=== PATIENT | male | born 1975 | race Hispanic/Latino ===

== ENCOUNTER 2018-04-16 00:23 | Inpatient (IN) | payer MEDICAID, OTHER ==
[2018-04-16] MEDS ORDERED: Morphine 4 mg/ml ISec ONE (00:30)
[2018-04-16 00:31] VITALS: TEMP 98.9
[2018-04-16] MEDS ORDERED: Morphine 4 mg/ml ISec IVP STA (00:33)
[2018-04-16] MEDS ORDERED: Eptifibatide 0.75 mg/ml 75 MG/100 ML BOTTLE IV ONE (00:34)
[2018-04-16] MEDS ORDERED: Eptifibatide 20 mg/10mL Inj IVP ONE ×3 (00:34→01:20)
[2018-04-16] MEDS ORDERED: Eptifibatide 20 mg/10mL Inj IVP STA (00:36)
[2018-04-16] MEDS: Eptifibatide 0.75 mg/ml 75 MG/100 ML BOTTLE IV SCH ×2 (00:43→12:48)
[2018-04-16 00:51] LABS: BASO # 0.04 K/mm3 (0.0-2.0); EOS # 0.1 (0.0-0.7); EOS % 2.4 % (1.5-5.0); GRAN # 1.12 (1.4-6.5); GRAN % 27.4 % (50.0-68.0); HEMOGLOBIN 16.6 g/dL (14.0-18.0); LYMPH # 2.4 (1.2-3.4); MEAN CELL VOLUME 77.8 fl (80.0-105.0); MEAN CORPUSCULAR HEMOGLOBIN 25.9 pg (25.0-35.0); MEAN CORPUSCULAR HGB CONC 33.3 g/dl (31.0-37.0); MONO # 0.4 (0.1-0.6); MONO % 10.2 % (1.0-6.0); RBC 6.41 10^6/uL (3.5-6.1); RED CELL DISTRIBUTION WIDTH 13.9 % (11.5-14.5); WHITE BLOOD COUNT 4.1 10^3/uL (4.5-11.0)
--- NOTE | 2018-04-16 00:53 | ED PDOC ---
Arrival/HPI - General Chief Complaint: Chest Pain Time Seen by Provider: 04/16/18 00:31 Historian: Patient - History of Present Illness Narrative History of Present Illness (Text): 04/16/18 00:53 42 year old male, whose past medical history includes IDDM, presents to the emergency department sent from the [facility], for possible myocardial infarction. EMS states EKG showed inferior infarction. EMS also states patient was given 325mg aspirin. Patient states his pain level reduced from 7 to 3 after administration of aspirin. Patient states symptoms started 3 hours prior to his arrival at this emergency department. Patient denies fevers, chills, abdominal pain, nausea, vomiting, diarrhea, back pain, neck pain, or any other complaint. Time/Duration: Prior to Arrival Symptom Onset: Gradual Symptom Course: Improving Context: Home Past Medical History - Provider Review Nursing Documentation Reviewed: Yes - Infectious Disease Hx of Infectious Diseases: None - Cardiac Hx Cardiac Disorders: No - Pulmonary Hx Respiratory Disorders: No - Neurological Hx Neurological Disorder: No - HEENT Hx HEENT Disorder: No - Renal Hx Renal Disorder: No - Endocrine/Metabolic Hx Endocrine Disorders: Yes Hx Diabetes Mellitus Type 1: Yes (stopped taking insulin) - Hematological/Oncological Hx Blood Disorders: No - Integumentary Hx Dermatological Disorder: No - Musculoskeletal/Rheumatological Hx Musculoskeletal Disorders: No - Gastrointestinal Hx Gastrointestinal Disorders: No - Genitourinary/Gynecological Hx Genitourinary Disorders: No - Psychiatric Hx Psychophysiologic Disorder: No Hx Substance Use: No Family/Social History - Physician Review Nursing Documentation Reviewed: Yes Family/Social History: No Known Family HX Smoking Status: Heavy Smoker > 10 Cigarettes Daily Hx Alcohol Use: Yes Frequency of alcohol use: Socially Hx Substance Use: No Allergies/Home Meds Allergies/Adverse Reactions: Allergies insulin human recombinant, protamin Allergy (Verified 04/16/18 00:26) URTICARIA Home Medications: Home Meds Medication Instructions Recorded Confirmed RX: No Known Home Med 04/16/18 04/16/18 Review of Systems - Physician Review All systems were reviewed & negative as marked: Yes - Review of Systems Constitutional: absent: Fevers, Night Sweats Cardiovascular: Chest Pain Gastrointestinal: absent: Abdominal Pain, Diarrhea, Nausea, Vomiting Musculoskeletal: absent: Back Pain, Neck Pain Physical Exam Vital Signs Reviewed: Yes Vital Signs Temp Pulse Resp BP Pulse Ox 04/16/18 00:38 102 H 18 134/95 H 98 04/16/18 00:31 98.9 F 04/16/18 00:28 101 H 20 131/89 97 Blood Pressure: Normal Pulse: Tachycardic Respiratory Rate: Normal Appearance: Positive for: Well-Appearing, Non-Toxic, Comfortable Pain Distress: None Mental Status: Positive for: Alert and Oriented X 3 - Systems Exam Head: Present: Atraumatic, Normocephalic Pupils: Present: PERRL Extroacular Muscles: Present: EOMI Conjunctiva: Present: Normal Mouth: Present: Moist Mucous Membranes Neck: Present: Normal Range of Motion Respiratory/Chest: Present: Clear to Auscultation, Good Air Exchange. No: Respiratory Distress, Accessory Muscle Use Cardiovascular: Present: Normal S1, S2, Tachycardic. No: Murmurs Abdomen: No: Tenderness, Distention, Peritoneal Signs Back: Present: Normal Inspection. No: CVA Tenderness Upper Extremity: Present: Normal Inspection. No: Cyanosis, Edema Lower Extremity: Present: Normal Inspection. No: Edema Neurological: Present: GCS=15, CN II-XII Intact, Speech Normal Skin: Present: Warm, Dry, Normal Color. No: Rashes Psychiatric: Present: Alert, Oriented x 3, Normal Insight, Normal Concentration Medical Decision Making ED Course and Treatment: 04/16/18 01:02 Impression: 42 year old male presents with chest pain. Inferior wall STEMI on previous EKG from [facility]. Code heart activated. Appreciate consult w/ Dr. Gonzales- requesting Brilinta 180mg, Heparin 3000U,. Integrillin 180mcg/kg + drip. Meds ordered. Pt in NAD. Nno hypoxic. Morphine IV given w/ decreased pain. Plan: -- EKG -- Chest X-ray -- Cardiac Iso, CMP -- Eptifibatide -- Heparin -- Morphine -- Brilinta -- O2 nasal cannula -- Reassess and disposition Prior Visits: No previous visits to this ER Progress Notes: 04/16/18 01:04 EKG reviewed by me, shows: Sinus Tachycardia @100 bpm STEMI 2,3, avF, Inferior wall infarct To cytology laboratory manager w/ Dr. Gonzales. Pt in NAD. 04/16/18 05:41 - RAD Interpretation Radiology Orders: 04/16/18 00:31 CHEST PORTABLE [RAD] Stat - Medication Orders Current Medication Orders: Eptifibatide (Integrilin Bolus) 18 mg IVP ONCE ONE Stop: 04/16/18 00:46 Last Admin: 04/16/18 00:38 Dose: 18 mg IVP Administration Document 04/16/18 00:38 JOL (Rec: 04/16/18 00:42 [facility]-) Charges for Administration # of IVP Administrations 1 Eptifibatide (Integrilin) 75 mg in 100 mls @ 16.01 mls/hr IV .Q6H15M PAM; Protocol Last Admin: 04/16/18 00:43 Dose: 16.01 mls/hr eMAR Start Stop Document 04/16/18 00:43 JOL (Rec: 04/16/18 00:43 [facility] Intravenous Solution Start Date 04/16/18 Start Time 00:43 Discontinued Medications Heparin Sodium (Porcine) (Heparin) 3,000 units IV ONCE STA; Protocol Stop: 04/16/18 00:32 Last Admin: 04/16/18 00:34 Dose: 3,000 units eMAR Start Stop Document 04/16/18 00:34 JOL (Rec: 04/16/18 00:39 [facility]-) Intravenous Solution Start Date 04/16/18 Start Time 00:34 Morphine Sulfate (Morphine) 4 mg IVP STAT STA Stop: 04/16/18 00:34 Last Admin: 04/16/18 00:31 Dose: 4 mg MAR Pain Assessment Document 04/16/18 00:31 JOL (Rec: 04/16/18 00:39 [facility]-) Pain Reassessment Is this a pain reassessment? No Sleep Is patient sleeping during reassessment? No Presence of Pain Presence of Pain Yes Pain Scale Used Protocol: PSCALES Pain Scale Used Numeric Location Pain Location Body Site Chest Description Intensity of Pain at present 3 IVP Administration Document 04/16/18 00:31 JOL (Rec: 04/16/18 00:39 [facility]-) Charges for Administration # of IVP Administrations 1 Ticagrelor (Brilinta) 180 mg PO STAT STA Stop: 04/16/18 00:34 Last Admin: 04/16/18 00:30 Dose: 180 mg - Scribe Statement The provider has reviewed the documentation as recorded by the Ghassan Ayala Provider Scribe Attestation: All medical record entries made by the Scribe were at my direction and personally dictated by me. I have reviewed the chart and agree that the record accurately reflects my personal performance of the history, physical exam, medical decision making, and the department course for this patient. I have also personally directed, reviewed, and agree with the discharge instructions and disposition. Disposition/Present on Arrival - Present on Arrival Any Indicators Present on Arrival: No History of DVT/PE: No History of Uncontrolled Diabetes: No Urinary Catheter: No History of Decub. Ulcer: No History Surgical Site Infection Following: None - Disposition Have Diagnosis and Disposition been Completed?: Yes Diagnosis: STEMI (ST elevation myocardial infarction) Disposition: HOSPITALIZED Disposition Time: 00:28 Patient Problems: Current Active Problems Problem Status Onset STEMI (ST elevation myocardial infarction) Acute Condition: GUARDED
[2018-04-16] MEDS ORDERED: Lidocaine 2% Inj (20ml) ONE (00:56)
[2018-04-16] MEDS ORDERED: Phenylephrine 10 mg/ml Inj ONE (00:56)
[2018-04-16] MEDS ORDERED: Iodixanol 320 MG/ML 200 ML BOTTLE IV ONE (00:57)
[2018-04-16] MEDS ORDERED: Nitroglycerin 50mg in D5W 50 MG/250 ML BOTTLE IV ONE (00:57)
[2018-04-16] MEDS ORDERED: Iohexol 350mgl/ml 50 ML ONE (00:57)
[2018-04-16] MEDS ORDERED: Heparin 2,000 ML IV ONE (00:57)
[2018-04-16] MEDS ORDERED: Midazolam 2 MG/2 ML VIAL ONE ×2 (00:57→01:17)
[2018-04-16] MEDS ORDERED: Iodixanol 320 MG/ML 100 ML BOTTLE IV ONE (00:57)
[2018-04-16] MEDS ORDERED: Sodium Chloride 0.9% 1,000 ML IV SCH ×2 (01:00→02:15)
[2018-04-16 01:09] LABS: ALB/GLOB RATIO 1.2 (1.1-1.8); ALBUMIN 4.3 g/dL (3.0-4.8); ALT/SGPT 29 U/L (7-56); AST/SGOT 30 U/L (17-59); BLOOD UREA NITROGEN 15 mg/dL (7-21); CALCIUM 9.3 mg/dL (8.4-10.5); GFR NON-AFRICAN AMERICAN > 60; TROPONIN I 0.15 ng/mL
[2018-04-16] MEDS ORDERED: Verapamil 2 ML ONE (01:13)
--- NOTE | 2018-04-16 02:41 | CARD ---
APPROVED REPORT Date of service: 04/16/2018 Procedure(s) performed: Left Heart Catheterization PTCA with Stenting of Mid Cx/ OM! with SHAWN PTCA with Balloon Angioplasty of OM2 PTCA with Stenting of Mid RCA with SHAWN HISTORY The patient is a 42 year-old male with a history of : tobacco history() : The patient is a current smoker , Admitted with STEMI ( Inferior wall Mi) referred from [facility] with Hx of active tobacco abuse and DM but not taking Meds exceot Ibuprofen. INDICATION The indication(s) include : STEMI (>0 to less than or equal to 6 hours). CASE TECHNIQUE The patient was brought emergently to the Cardiac Catheterization Laboratory in a fasting state and was prepped and draped in a sterile manner. The left wrist was infiltrated with 2% Lidocaine subcutaneous anesthesia. A sheath was inserted into the left radial artery without difficulty. Coronary angiography was performed using coronary diagnostic catheters. The left coronary system was accessed and visualized with a Diagnostic , JL5 Fr catheter. The right coronary system was accessed and visualized with a Diagnostic , Jr 5Fr catheter. The left ventricle was accessed and visualized with a Pig tail catheter. Left ventriculogram was performed in MADRIGAL projection. Closure device was deployed with a Fr Tr Band without any complications. The patient tolerated the procedure well and there were no complications associated with the procedure. Vessel Analysis The patient's coronary anatomy is co-dominant. The left main coronary artery is a large size vessel with intimal irregularities. The left main trifurcates to the left anterior descending, circumflex, and ramus. The left anterior descending artery is a large size vessel with intimal irregularities. The first diagonal branch is a medium size vessel with intimal irregularities and without significant stenosis. The circumflex artery is a large size vessel with diffuse calcification noted throughout this vessel and with significant stenosis. There is a 99% stenosis in the mid segment. Bifurcating into OM1 and OM2 The first obtuse marginal branch is a large size vessel with diffuse calcification noted throughout this vessel and with significant stenosis. There is a 99% stenosis in the ostial segment. The second obtuse marginal branch is a medium size vessel with diffuse calcification noted throughout this vessel and with significant stenosis. There is a 99% stenosis in the ostial segment. The right coronary artery is a medium size vessel with diffuse calcification noted throughout this vessel and with significant stenosis. There is a 90% stenosis in the mid segment. Left Ventricle The left ventricle is borderline enlarged in size with Borderline contractility. Ischemic cardiomyopathy. The left ventricular ejection fraction is estimated to be 45-50%. The left ventricular end diastolic pressure is 14 mmHg. There was no gradient across the aortic valve upon pullback. PCI Technique Lesion Anticoagulation was achieved with Heparin and integrellin Bolluses and continuous infusion. Percutaneous coronary intervention was performed on the mid circumflex artery segment and OM1. The lesion stenosis prior to intervention was 99% with BULL 1 flow. A Xb 3.5 Guide Catheter was used to engage the ostium. A Lud[employer]el[employer] wire Interventional Guidewire was used to cross the lesion. BALLOON DILATION A Balloon catheter Sprinter 2/12 was inserted and inflated up to 10atm for 20seconds. Upsized balloon tosprinter 2.5/10 and inflated to 12 atmosphere STENT DEPLOYMENT A drug-eluting stent Resolute 2.75/15 was inserted and inflated up to 13atm for 20seconds. Final angiography reveals 0 % stenosis with BULL 3 flow. PCI Technique Lesion 2 Percutaneous Coronary Intervention was performed on the second obtuse marginal branch segment. The lesion stenosis prior to intervention was 99% with BULL 1 flow. A Xb3.5 Guide Catheter was used to engage the ostium. A choice Pt 180 cm Interventional Guidewire was used to cross the lesion. BALLOON DILATION A Balloon catheter 2.0/12 Sprinter was inserted and inflated up to 10atm for 20seconds. Upsized to sprinter 2.,5/10 and inflated to 12 atmosphere Final angiography reveals 0 % stenosis with BULL 3 flow. PCI Technique Lesion 3 Percutaneous Coronary Intervention was performed on the mid right coronary artery. The lesion stenosis prior to intervention was 90% with BULL 2 flow. A JR3.5 Guide Catheter was used to engage the ostium. A Choice pt 180 cm Interventional Guidewire was used to cross the lesion. BALLOON DILATION A Balloon catheter Sprinter 2.5/10 was inserted and inflated up to 10atm for 20seconds. STENT DEPLOYMENT A drug-eluting stent 2.75/12 was inserted and inflated up to 13atm for 20seconds. Final angiography reveals 0 % stenosis with BULL 3 flow. Conclusion Two vessel critical Diz distal Cx 99% involving Bifurcation of Ostial OM1 and OM2 99%, and Mid RCA 90%, Mildly decreased LV Fx. EF-45-50%, EDP-14 mmof Hg. Successful PTCA wityh SHAWN of Mid Cx/ OM1 POBA of OM2 and PTCA with Shawn of Mid RCA Recommendations Aggressive Medical TherapyCardiac Risk Reduction Program Weight Loss Reduction Program Mandatory continue ASA 81 mg daily and Brilinta 90 mg po BID. Pus Beta bianca, ELIZABETH, and statin. aggressive control of DM Compliance of Meds, and complete cessation of smoking. CC; dr. Espinoza.
--- NOTE | 2018-04-16 03:07 | CP.PCM.HP ---
History of Present Illness - History of Present Illness History of Present Illness: Live Gregory, PGY-1 Medicine H&P for Dr. Kuhn G: CC: Referral from [facility] ER for possible CA Pt is a 42 yo M with pmhx of IDDM presents to the ED from a [facility] ER for possible CA. Pt states that he went to satellite ER because he began having chest pain at 9pm. He rated the pain at 7/10 and states that it is a burning type pain which started on his L side and then radiated to the R shoulder and arm. He denies any worsening of the pain with exertion and states that there was no alleviation of the pain overtime. Pt reports not taking anything for the chest pain and states that since it didnt get better over time he wanted to go take a shower, but while walking to the bathroom he became SOB. He then called a cab to take him to the satellite ER and then was BIBA to our ER where a code heart was called. After cath pt was re-evaluated and pt at this time described no chest pain, headaches, lightheadedness, dizziness, numbness, tingling, weakness, SOB, cough, fevers, chills, abd pain, n/v, c/d, or dysuria. Pmhx: IDDM Pshx: I&D (perineal area) Meds: Denies All: Insulin - Urticaria Social: 1ppd x 20yrs, admits to social drinking, denies any illicit drug use Fam: Mom: DM, HTN, Dad: DM, HTN PMD: Dr. Still Pharm: [facility] Present on Admission - Present on Admission Any Indicators Present on Admission: No Review of Systems - Review of Systems Review of Systems: 12 point ROS assessed and negative except for stated in HPI above. Past Patient History - Infectious Disease Hx of Infectious Diseases: None - Past Social History Smoking Status: Heavy Smoker > 10 Cigarettes Daily - CARDIAC Hx Cardiac Disorders: No - PULMONARY Hx Respiratory Disorders: No - NEUROLOGICAL Hx Neurological Disorder: No - HEENT Hx HEENT Problems: No - RENAL Hx Chronic Kidney Disease: No - ENDOCRINE/METABOLIC Hx Endocrine Disorders: Yes Hx Diabetes Mellitus Type 1: Yes (stopped taking insulin) - HEMATOLOGICAL/ONCOLOGICAL Hx Blood Disorders: No - INTEGUMENTARY Hx Dermatological Problems: No - MUSCULOSKELETAL/RHEUMATOLOGICAL Hx Musculoskeletal Disorders: No - GASTROINTESTINAL Hx Gastrointestinal Disorders: No - GENITOURINARY/GYNECOLOGICAL Hx Genitourinary Disorders: No - PSYCHIATRIC Hx Psychophysiologic Disorder: No Hx Substance Use: No - SURGICAL HISTORY Hx Surgeries: No Meds Allergies/Adverse Reactions: Allergies Allergy/AdvReac Type Severity Reaction Status Date / Time insulin human recombinant, Allergy URTICARIA Verified 04/16/18 00:26 protamin Physical Exam - Constitutional Appears: Well, Non-toxic, No Acute Distress - Head Exam Head Exam: ATRAUMATIC, NORMAL INSPECTION, NORMOCEPHALIC - Eye Exam Eye Exam: EOMI, Normal appearance, PERRL - Respiratory Exam Respiratory Exam: Clear to Auscultation Bilateral, NORMAL BREATHING PATTERN. absent: Accessory Muscle Use, Decreased Breath Sounds, Rales, Rhonchi, Wheezes, Respiratory Distress, Stridor Additional comments: pts exam was limited due to pt being post cath and unable to properly assess posterior lung joyce - Cardiovascular Exam Cardiovascular Exam: RRR, +S1, +S2. absent: Gallop, Rubs, Systolic Murmur - GI/Abdominal Exam GI & Abdominal Exam: Normal Bowel Sounds, Soft. absent: Distended, Firm, Gu arding, Tenderness - Extremities Exam Extremities exam: Positive for: normal inspection, pedal pulses present. Negative for: normal capillary refill, pedal edema, tenderness Additional comments: Pts radial area was - Back Exam Back exam: NORMAL INSPECTION. absent: CVA tenderness (L), CVA tenderness (R) - Neurological Exam Neurological exam: Alert, Oriented x3 - Psychiatric Exam Psychiatric exam: Normal Affect, Normal Mood - Skin Skin Exam: Dry, Normal Color, Warm Results - Vital Signs Recent Vital Signs: Last Vital Signs Temp 98.9 F 04/16/18 00:31 Pulse 96 H 04/16/18 01:33 Resp 18 04/16/18 00:57 BP 125/84 04/16/18 01:33 Pulse Ox 98 04/16/18 00:57 - Labs Result Diagrams: 04/16/18 03:15 04/16/18 03:15 Labs: Laboratory Results - last 24 hr 04/16/18 04/16/18 04/16/18 00:30 00:35 00:35 WBC 4.1 L RBC 6.41 H Hgb 16.6 Hct 49.9 MCV 77.8 L MCH 25.9 MCHC 33.3 RDW 13.9 Plt Count 150 MPV 10.0 Gran % 27.4 L Lymph % (Auto) 59.0 H [place] % (Auto) 10.2 H Eos % (Auto) 2.4 Baso % (Auto) 1.0 Gran # 1.12 L Lymph # (Auto) 2.4 [place] # (Auto) 0.4 Eos # (Auto) 0.1 Baso # (Auto) 0.04 Sodium 139 Potassium 4.0 Chloride 104 Carbon Dioxide 25 Anion Gap 14 BUN 15 Creatinine 0.8 Est GFR ( Amer) > 60 Est GFR (Non-Af Amer) > 60 Random Glucose 307 H* Calcium 9.3 Total Bilirubin 0.4 AST 30 ALT 29 Alkaline Phosphatase 88 Lactate Dehydrogenase 356 Total Creatine Kinase 164 Troponin I 0.15 H* Total Protein 7.8 Albumin 4.3 Globulin 3.5 Albumin/Globulin Ratio 1.2 Blood Type A POSITIVE Antibody Screen Negative BBK History Checked No verified bt Assessment & Plan - Assessment and Plan (Free Text) Assessment: Pt is a 42 yo M with pmhx of IDDM presents to the ED from a [facility] ER for possible CA. Code heart was called, pt was taken to the labor commissioner. Plan: 1. Inferior wall CA s/p 3 stents: - Stents placed in Left circumflex, RCA, and OM1 - ASA 81 - Lipitor 80 - Coreg 3.125 BID - Brilinta 90 BID - Ramipril 1.25 qd - Employee Benefits Attorney: Dr Gonzales 2. Hx of DM: - ISS - Low - HgbA1c Case seen and discussed with Dr. Moncada: Live Gregory, PGY-1
[2018-04-16 03:30] LABS: BASO # 0.03 K/mm3 (0.0-2.0); BASO % 0.7 % (0.0-3.0); EOS # 0.1 (0.0-0.7); EOS % 3.3 % (1.5-5.0); GRAN # 1.14 (1.4-6.5); HEMOGLOBIN 16.2 g/dL (14.0-18.0); LYMPH # 2.5 (1.2-3.4); LYMPH % 59.3 % (22.0-35.0); MEAN CELL VOLUME 78.3 fl (80.0-105.0); MEAN CORPUSCULAR HEMOGLOBIN 25.4 pg (25.0-35.0); MEAN CORPUSCULAR HGB CONC 32.5 g/dl (31.0-37.0); MEAN PLATELET VOLUME 10.5 fl (7.0-11.0); MONO # 0.4 (0.1-0.6); MONO % 9.7 % (1.0-6.0); RBC 6.37 10^6/uL (3.5-6.1); RED CELL DISTRIBUTION WIDTH 13.8 % (11.5-14.5); WHITE BLOOD COUNT 4.2 10^3/uL (4.5-11.0)
[2018-04-16 03:47] LABS: BLOOD UREA NITROGEN 15 mg/dL (7-21); CALCIUM 8.2 mg/dL (8.4-10.5); GFR NON-AFRICAN AMERICAN > 60; HDL CHOLESTEROL 26 mg/dL (29-60)
[2018-04-16 03:47] LABS: INR 1.04; PROTHROMBIN TIME 11.9 SECONDS (9.4-12.5)
[2018-04-16 03:54] VITALS: BMI 34.5
[2018-04-16 03:59] LABS: LDL CHOLESTEROL 140 mg/dL (0-129)
--- NOTE | 2018-04-16 06:13 | CP.PCM.PN ---
Subjective - Date & Time of Evaluation Date of Evaluation: 04/16/18 Time of Evaluation: 03:30 - Subjective Subjective: Code Heart note 42 yo male with pmh of IDDM presented to the ED from a [facility] ER for possible STEMI. Patient states that he went to [facility] ER because he began having chest pain at 9pm. He rated the pain at 7/10 and states that it is a burning type pain which started on his left side and then radiated to the right shoulder and arm. Patient denies taking anything for the chest pain. He was take him to the satellite ER and then was BIBA to ED after ekg showed inferior wall MS. Code heart was called. Objective - Vital Signs/Intake and Output Vital Signs (last 24 hours): Temp Pulse Resp BP Pulse Ox 98.9 F 101 H 20 125/84 98 04/16/18 00:31 04/16/18 03:39 04/16/18 03:39 04/16/18 01:33 04/16/18 00:57 - Medications Medications: Current Medications Aspirin (Ecotrin) 81 mg PO DAILY [facility] Atorvastatin Calcium (Lipitor) 80 mg PO DIN [facility] Carvedilol (Coreg) 3.125 mg PO BID [facility] Eptifibatide (Integrilin) 75 mg in 100 mls @ 16.01 mls/hr IV .Q6H15M [facility]; Protocol Stop: 04/16/18 18:45 Last Admin: 04/16/18 00:43 Dose: 16.01 mls/hr Sodium Chloride (Sodium Chloride 0.9%) 1,000 mls @ 100 mls/hr IV .Q10H [facility] Sodium Chloride (Sodium Chloride 0.9%) 1,000 mls @ 100 mls/hr IV .Q10H [facility] Stop: 04/16/18 12:00 Last Admin: 04/16/18 05:59 Dose: 100 mls/hr Insulin Human Lispro (Humalog Low) 0 units SC ACHS [facility]; Protocol Ramipril (Altace) 1.25 mg PO DAILY [facility] Ticagrelor (Brilinta) 90 mg PO BID [facility] - Labs Labs: 04/16/18 03:15 04/16/18 03:15 PT 11.9 SECONDS (9.4-12.5) 04/16/18 00:35 INR 1.04 04/16/18 00:35 APTT 53.0 Seconds (25.1-36.5) H 04/16/18 00:35 - Constitutional Appears: No Acute Distress - Head Exam Head Exam: ATRAUMATIC, NORMAL INSPECTION, NORMOCEPHALIC - ENT Exam ENT Exam: Mucous Membranes Moist - Respiratory Exam Respiratory Exam: Clear to Ausculation Bilateral, NORMAL BREATHING PATTERN. absent: Rhonchi, Wheezes, Respiratory Distress - Cardiovascular Exam Cardiovascular Exam: Tachycardia, REGULAR RHYTHM - Neurological Exam Neurological Exam: Alert, Awake, Oriented x3 - Skin Skin Exam: Dry, Intact, Normal Color, Warm Assessment and Plan - Assessment and Plan (Free Text) Assessment: 42 yo male with pmh of IDDM presented to the ED from a [facility] ER for STEMI, code heart was called. In ED patient was given eptifibatide, heparin, brilinta, and morphine for pain. Patients vitals were reviewed and stable. Arabic Linguist examined patient in ED. Patient was transferred to cardiac cath with tele monitoring, supplemental oxygen with nasal canula. Patient was transferred to cath team for further care. case seen and reviewed with Dr. Moncada
[2018-04-16] MEDS ORDERED: Insulin Reg-LOW-Coverage SC SCH (07:30)
--- NOTE | 2018-04-16 07:35 | CP.PCM.CON ---
<Live Gregory - Last Filed: 04/16/18 07:32> History of Present Illness - History of Present Illness History of Present Illness: Live Gregory, PGY-[address] Moncada: CC: Referral from satellite ER for possible MT Pt is a 42 yo M with pmhx of IDDM presents to the ED from a satellite ER for possible MT. Pt states that he went to satellite ER because he began having chest pain at 9pm. He rated the pain at 7/10 and states that it is a burning type pain which started on his L side and then radiated to the R shoulder and arm. He denies any worsening of the pain with exertion and states that there was no alleviation of the pain overtime. Pt reports not taking anything for the chest pain and states that since it didnt get better over time he wanted to go take a shower, but while walking to the bathroom he became SOB. He then called a cab to take him to the satellite ER and then was BIBA to our ER where a code heart was called. After cath pt was re-evaluated and pt at this time described no chest pain, headaches, lightheadedness, dizziness, numbness, tingling, weakness, SOB, cough, fevers, chills, abd pain, n/v, c/d, or dysuria. Pmhx: IDDM Pshx: I&D (perineal area) Meds: Denies All: Insulin - Urticaria Social: 1ppd x 20yrs, admits to social drinking, denies any illicit drug use Fam: Mom: DM, HTN, Dad: DM, HTN PMD: Dr. Still Pharm: Sofi Benjamin in Review of Systems - Review of Systems Review of Systems: 12 point ROS assessed and negative except for stated in HPI above. Past Patient History - Infectious Disease Hx of Infectious Diseases: None - Past Social History Smoking Status: Heavy Smoker > 10 Cigarettes Daily - CARDIAC Hx Cardiac Disorders: No - PULMONARY Hx Respiratory Disorders: No - NEUROLOGICAL Hx Neurological Disorder: No - HEENT Hx HEENT Problems: No - RENAL Hx Chronic Kidney Disease: No - ENDOCRINE/METABOLIC Hx Endocrine Disorders: Yes Hx Diabetes Mellitus Type 1: Yes (stopped taking insulin) - HEMATOLOGICAL/ONCOLOGICAL Hx Blood Disorders: No - INTEGUMENTARY Hx Dermatological Problems: No - MUSCULOSKELETAL/RHEUMATOLOGICAL Hx Musculoskeletal Disorders: No - GASTROINTESTINAL Hx Gastrointestinal Disorders: No - GENITOURINARY/GYNECOLOGICAL Hx Genitourinary Disorders: No - PSYCHIATRIC Hx Psychophysiologic Disorder: No Hx Substance Use: No - SURGICAL HISTORY Hx Surgeries: No Meds Allergies/Adverse Reactions: Allergies Allergy/AdvReac Type Severity Reaction Status Date / Time insulin human recombinant, Allergy URTICARIA Verified 04/16/18 00:26 protamin - Medications Medications: Current Medications Aspirin (Ecotrin) 81 mg PO DAILY [facility] Atorvastatin Calcium (Lipitor) 80 mg PO DIN [facility] Carvedilol (Coreg) 3.125 mg PO BID [facility] Eptifibatide (Integrilin) 75 mg in 100 mls @ 16.01 mls/hr IV .Q6H15M [facility]; Protocol Stop: 04/16/18 18:45 Last Admin: 04/16/18 00:43 Dose: 16.01 mls/hr Sodium Chloride (Sodium Chloride 0.9%) 1,000 mls @ 100 mls/hr IV .Q10H PAM Sodium Chloride (Sodium Chloride 0.9%) 1,000 mls @ 100 mls/hr IV .Q10H [facility] Stop: 04/16/18 12:00 Last Admin: 04/16/18 05:59 Dose: 100 mls/hr Insulin Human Lispro (Humalog Low) 0 units SC ACHS [facility]; Protocol Ramipril (Altace) 1.25 mg PO DAILY [facility] Ticagrelor (Brilinta) 90 mg PO BID [facility] Physical Exam - Constitutional Appears: Non-toxic, No Acute Distress - Head Exam Head Exam: ATRAUMATIC, NORMAL INSPECTION, NORMOCEPHALIC - Eye Exam Eye Exam: EOMI, Normal appearance, PERRL - Respiratory Exam Respiratory Exam: Clear to Auscultation Bilateral, NORMAL BREATHING PATTERN. absent: Accessory Muscle Use, Decreased Breath Sounds, Rales, Rhonchi, Wheezes, Respiratory Distress, Stridor Additional comments: pts exam was limited due to pt being post cath and unable to properly assess posterior lung joyce - Cardiovascular Exam Cardiovascular Exam: RRR, +S1, +S2. absent: Gallop, Rubs, Systolic Murmur - GI/Abdominal Exam GI & Abdominal Exam: Normal Bowel Sounds, Soft. absent: Distended, Firm, Guarding, Tenderness - Extremities Exam Extremities exam: Positive for: normal capillary refill, normal inspection, pedal pulses present. Negative for: calf tenderness, pedal edema, tenderness Additional comments: Pts radial area was assessed and no hematoma was noted on exam. pt was able to move fingers and had no numbness tingling in any extremity. - Neurological Exam Neurological exam: Alert, Oriented x3 - Psychiatric Exam Psychiatric exam: Normal Affect, Normal Mood - Skin Skin Exam: Dry, Normal Color, Warm Results - Vital Signs Recent Vital Signs: Last Vital Signs Temp 98.9 F 04/16/18 00:31 Pulse 95 H 04/16/18 07:20 Resp 23 04/16/18 07:20 BP 125/84 04/16/18 01:33 Pulse Ox 94 L 04/16/18 07:20 - Labs Result Diagrams: 04/16/18 03:15 04/16/18 03:15 Labs: Laboratory Results - last 24 hr 04/16/18 04/16/18 04/16/18 00:30 00:35 00:35 WBC 4.1 L RBC 6.41 H Hgb 16.6 Hct 49.9 MCV 77.8 L MCH 25.9 MCHC 33.3 RDW 13.9 Plt Count 150 MPV 10.0 Gran % 27.4 L Lymph % (Auto) 59.0 H [place] % (Auto) 10.2 H Eos % (Auto) 2.4 Baso % (Auto) 1.0 Gran # 1.12 L Lymph # (Auto) 2.4 [place] # (Auto) 0.4 Eos # (Auto) 0.1 Baso # (Auto) 0.04 PT 11.9 INR 1.04 APTT 53.0 H Sodium Potassium Chloride Carbon Dioxide Anion Gap BUN Creatinine Est GFR ( Amer) Est GFR (Non-Af Amer) Random Glucose Calcium Phosphorus Magnesium Total Bilirubin AST ALT Alkaline Phosphatase Lactate Dehydrogenase Total Creatine Kinase Troponin I Total Protein Albumin Globulin Albumin/Globulin Ratio Triglycerides Cholesterol LDL Cholesterol Direct HDL Cholesterol TSH 3rd Generation Blood Type A POSITIVE Blood Type Confirm Antibody Screen Negative BBK History Checked No verified bt 04/16/18 04/16/18 04/16/18 00:35 03:15 03:15 WBC RBC Hgb Hct MCV MCH MCHC RDW Plt Count MPV Gran % Lymph % (Auto) [place] % (Auto) Eos % (Auto) Baso % (Auto) Gran # Lymph # (Auto) [place] # (Auto) Eos # (Auto) Baso # (Auto) PT INR APTT Sodium 139 137 Potassium 4.0 3.9 Chloride 104 103 Carbon Dioxide 25 26 Anion Gap 14 11 BUN 15 15 Creatinine 0.8 0.7 L Est GFR ( Amer) > 60 > 60 Est GFR (Non-Af Amer) > 60 > 60 Random Glucose 307 H* 282 H Calcium 9.3 8.2 L Phosphorus 3.3 Magnesium 1.9 Total Bilirubin 0.4 AST 30 ALT 29 Alkaline Phosphatase 88 Lactate Dehydrogenase 356 Total Creatine Kinase 164 Troponin I 0.15 H* Total Protein 7.8 Albumin 4.3 Globulin 3.5 Albumin/Globulin Ratio 1.2 Triglycerides 287 H Cholesterol 204 H LDL Cholesterol Direct 140 H HDL Cholesterol 26 L TSH 3rd Generation 9.07 H Blood Type Blood Type Confirm Antibody Screen BBK History Checked 04/16/18 04/16/18 03:15 03:15 WBC 4.2 L RBC 6.37 H Hgb 16.2 Hct 49.9 MCV 78.3 L MCH 25.4 MCHC 32.5 RDW 13.8 Plt Count 147 MPV 10.5 Gran % 27.0 L Lymph % (Auto) 59.3 H [place] % (Auto) 9.7 H Eos % (Auto) 3.3 Baso % (Auto) 0.7 Gran # 1.14 L Lymph # (Auto) 2.5 [place] # (Auto) 0.4 Eos # (Auto) 0.1 Baso # (Auto) 0.03 PT INR APTT Sodium Potassium Chloride Carbon Dioxide Anion Gap BUN Creatinine Est GFR ( Amer) Est GFR (Non-Af Amer) Random Glucose Calcium Phosphorus Magnesium Total Bilirubin AST ALT Alkaline Phosphatase Lactate Dehydrogenase Total Creatine Kinase Troponin I Total Protein Albumin Globulin Albumin/Globulin Ratio Triglycerides Cholesterol LDL Cholesterol Direct HDL Cholesterol TSH 3rd Generation Blood Type Blood Type Confirm A POSITIVE Antibody Screen BBK History Checked Assessment & Plan - Assessment and Plan (Free Text) Assessment: Pt is a 42 yo M with pmhx of IDDM presents [facility] ED from a [facility] ER for possible MT. Code heart was called, pt was taken to the semiconductor lab technician. 3 Bare-metal stents placed. Plan: 1. Inferior wall MT s/p 3 bare metal stents: - Stents placed in Left circumflex, RCA, and OM1 - ASA 81 - Lipitor 80 - Coreg 3.125 BID - Brilinta 90 BID - Ramipril 1.25 qd - Pouch Maker: Dr Gonzales 2. Hx of DM: - ISS - Low - HgbA1c Case seen and discussed with Dr. Moncada: Live Gregory, PGY-1 <Escobar Moncada - Last Filed: 04/16/18 08:05> Meds - Medications Medications: Current Medications Aspirin (Ecotrin) 81 mg PO DAILY PAM Atorvastatin Calcium (Lipitor) 80 mg PO DIN PAM Carvedilol (Coreg) 3.125 mg PO BID PAM Eptifibatide (Integrilin) 75 mg in 100 mls @ 16.01 mls/hr IV .Q6H15M PAM; Protocol Stop: 04/16/18 18:45 Last Admin: 04/16/18 00:43 Dose: 16.01 mls/hr Sodium Chloride (Sodium Chloride 0.9%) 1,000 mls @ 100 mls/hr IV .Q10H PAM Sodium Chloride (Sodium Chloride 0.9%) 1,000 mls @ 100 mls/hr IV .Q10H PAM Stop: 04/16/18 12:00 Last Admin: 04/16/18 05:59 Dose: 100 mls/hr Insulin Human Lispro (Humalog Low) 0 units SC ACHS PAM; Protocol Ramipril (Altace) 1.25 mg PO DAILY PAM Ticagrelor (Brilinta) 90 mg PO BID PAM Results - Vital Signs Recent Vital Signs: Last Vital Signs Temp 98.9 F 04/16/18 00:31 Pulse 95 H 04/16/18 07:20 Resp 23 04/16/18 07:20 BP 125/84 04/16/18 01:33 Pulse Ox 94 L 04/16/18 07:20 - Labs Result Diagrams: 04/16/18 03:15 04/16/18 03:15 Labs: Laboratory Results - last 24 hr 04/16/18 04/16/18 04/16/18 00:30 00:35 00:35 WBC 4.1 L RBC 6.41 H Hgb 16.6 Hct 49.9 MCV 77.8 L MCH 25.9 MCHC 33.3 RDW 13.9 Plt Count 150 MPV 10.0 Gran % 27.4 L Lymph % (Auto) 59.0 H [place] % (Auto) 10.2 H Eos % (Auto) 2.4 Baso % (Auto) 1.0 Gran # 1.12 L Lymph # (Auto) 2.4 [place] # (Auto) 0.4 Eos # (Auto) 0.1 Baso # (Auto) 0.04 PT 11.9 INR 1.04 APTT 53.0 H Sodium Potassium Chloride Carbon Dioxide Anion Gap BUN Creatinine Est GFR ( Amer) Est GFR (Non-Af Amer) Random Glucose Calcium Phosphorus Magnesium Total Bilirubin AST ALT Alkaline Phosphatase Lactate Dehydrogenase Total Creatine Kinase Troponin I Total Protein Albumin Globulin Albumin/Globulin Ratio Triglycerides Cholesterol LDL Cholesterol Direct HDL Cholesterol TSH 3rd Generation Blood Type A POSITIVE Blood Type Confirm Antibody Screen Negative BBK History Checked No verified bt 04/16/18 04/16/18 04/16/18 00:35 03:15 03:15 WBC RBC Hgb Hct MCV MCH MCHC RDW Plt Count MPV Gran % Lymph % (Auto) [place] % (Auto) Eos % (Auto) Baso % (Auto) Gran # Lymph # (Auto) [place] # (Auto) Eos # (Auto) Baso # (Auto) PT INR APTT Sodium 139 137 Potassium 4.0 3.9 Chloride 104 103 Carbon Dioxide 25 26 Anion Gap 14 11 BUN 15 15 Creatinine 0.8 0.7 L Est GFR ( Amer) > 60 > 60 Est GFR (Non-Af Amer) > 60 > 60 Random Glucose 307 H* 282 H Calcium 9.3 8.2 L Phosphorus 3.3 Magnesium 1.9 Total Bilirubin 0.4 AST 30 ALT 29 Alkaline Phosphatase 88 Lactate Dehydrogenase 356 Total Creatine Kinase 164 Troponin I 0.15 H* Total Protein 7.8 Albumin 4.3 Globulin 3.5 Albumin/Globulin Ratio 1.2 Triglycerides 287 H Cholesterol 204 H LDL Cholesterol Direct 140 H HDL Cholesterol 26 L TSH 3rd Generation 9.07 H Blood Type Blood Type Confirm Antibody Screen BBK History Checked 04/16/18 04/16/18 03:15 03:15 WBC 4.2 L RBC 6.37 H Hgb 16.2 Hct 49.9 MCV 78.3 L MCH 25.4 MCHC 32.5 RDW 13.8 Plt Count 147 MPV 10.5 Gran % 27.0 L Lymph % (Auto) 59.3 H [place] % (Auto) 9.7 H Eos % (Auto) 3.3 Baso % (Auto) 0.7 Gran # 1.14 L Lymph # (Auto) 2.5 [place] # (Auto) 0.4 Eos # (Auto) 0.1 Baso # (Auto) 0.03 PT INR APTT Sodium Potassium Chloride Carbon Dioxide Anion Gap BUN Creatinine Est GFR ( Amer) Est GFR (Non-Af Amer) Random Glucose Calcium Phosphorus Magnesium Total Bilirubin AST ALT Alkaline Phosphatase Lactate Dehydrogenase Total Creatine Kinase Troponin I Total Protein Albumin Globulin Albumin/Globulin Ratio Triglycerides Cholesterol LDL Cholesterol Direct HDL Cholesterol TSH 3rd Generation Blood Type Blood Type Confirm A POSITIVE Antibody Screen BBK History Checked Attending/Attestation - Attestation I have personally seen and examined this patient.: Yes I have fully participated in the care of the patient.: Yes I have reviewed all pertinent clinical information: Yes Notes (Text): 04/16/18 08:05 Patient was seen when he was in the ER. Agree with history, physical examination, assessment and plan. CCT spent 30 minutes.
--- NOTE | 2018-04-16 08:50 | CP.CCUPN ---
<Adam Pedraza - Last Filed: 04/16/18 12:54> CCU Subjective - Physician Review Subjective (Free Text): Adam Pedraza, PGY-1 Progress Note for ICU Patient seen and evaluated at bedside. Patient went for L heart catheterization after code heart was called after transfer from [facility] ER secondary to concerning EKG findings. Patient states he has not taken his diabetic medications for over 2 years. Currently, s/p cardiac catheterization, patient denies chest pain, shortness of breath, pain at L radial cath. site, numbness, tingling, shortness of breath, dizziness, blurry vision and headaches. CCU Objective - Vital Signs / Intake & Output Vital Signs (Last 4 hours): Vital Signs Pulse Resp Pulse Ox 04/16/18 07:20 95 H 23 94 L 04/16/18 07:10 93 H 27 H 94 L 04/16/18 07:00 91 H 29 H 95 04/16/18 06:50 93 H 29 H 95 04/16/18 06:40 93 H 28 H 96 04/16/18 06:30 93 H 27 H 96 04/16/18 06:20 96 H 26 H 95 04/16/18 06:10 97 H 20 95 04/16/18 06:00 98 H 24 96 04/16/18 05:50 98 H 23 96 04/16/18 05:40 97 H 23 96 04/16/18 05:30 97 H 97 04/16/18 05:20 104 H 17 98 04/16/18 05:10 99 H 11 L 97 04/16/18 05:00 102 H 27 H 96 04/16/18 04:50 99 H 32 H 96 Intake and Output (Last 8hrs): Intake & Output 04/15/18 04/16/18 04/16/18 22:59 06:59 14:59 Weight 100.062 kg - Physical Exam Head: Positive for: Atraumatic, Normocephalic Pupils: Positive for: PERRL Extroacular Muscles: Positive for: EOMI Conjunctiva: Positive for: Normal Mouth: Positive for: Moist Mucous Membranes Neck: Positive for: Normal Range of Motion Respiratory/Chest: Positive for: Clear to Auscultation, Good Air Exchange. Negative for: Respiratory Distress, Accessory Muscle Use Cardiovascular: Positive for: Normal S1, S2. Negative for: Murmurs, Tachycardic Abdomen: Negative for: Tenderness, Distention, Peritoneal Signs Back: Positive for: Normal Inspection. Negative for: CVA Tenderness Upper Extremity: Positive for: Normal Inspection, Other (No numbness/tingling in hands). Negative for: Cyanosis, Edema Lower Extremity: Positive for: Normal Inspection. Negative for: Edema Neurological: Positive for: GCS=15, CN II-XII Intact, Speech Normal Skin: Positive for: Warm, Dry, Normal Color. Negative for: Rashes Psychiatric: Positive for: Alert, Oriented x 3, Normal Insight, Normal Concentration - Medications Active Medications: Active Medications Generic Name Dose Route Start Last Admin Trade Name Freq PRN Reason Stop Dose Admin Aspirin 81 mg 04/16/18 10:00 Ecotrin PO DAILY [facility] Atorvastatin Calcium 80 mg 04/16/18 17:00 Lipitor PO DIN PAM Carvedilol 3.125 mg 04/16/18 10:00 Coreg PO BID PAM Eptifibatide 75 mg in 100 mls @ 16.01 mls/hr 04/16/18 00:45 04/16/18 00:43 Integrilin IV 04/16/18 18:45 16.01 mls/hr .Q6H15M PAM Administration Protocol 2 MCG/KG/MIN Sodium Chloride 1,000 mls @ 100 mls/hr 04/16/18 01:00 Sodium Chloride 0.9% IV .Q10H PAM Sodium Chloride 1,000 mls @ 100 mls/hr 04/16/18 02:15 04/16/18 05:59 Sodium Chloride 0.9% IV 04/16/18 12:00 100 mls/hr .Q10H PAM Administration Insulin Human Lispro 0 units 04/16/18 07:30 Humalog Low SC ACHS PAM Protocol Ramipril 1.25 mg 04/16/18 10:00 Altace PO DAILY PAM Ticagrelor 90 mg 04/16/18 10:00 Brilinta PO BID PAM - Patient Studies Lab Studies: Lab Studies 04/16/18 04/16/18 04/16/18 Range/Units 03:15 03:15 03:15 WBC 4.2 L (4.5-11.0) 10^3/uL RBC 6.37 H (3.5-6.1) 10^6/uL Hgb 16.2 (14.0-18.0) g/dL Hct 49.9 (42.0-52.0) % MCV 78.3 L (80.0-105.0) fl MCH 25.4 (25.0-35.0) pg MCHC 32.5 (31.0-37.0) g/dl RDW 13.8 (11.5-14.5) % Plt Count 147 (120.0-450.0) 10^3/uL MPV 10.5 (7.0-11.0) fl Gran % 27.0 L (50.0-68.0) % Lymph % (Auto) 59.3 H (22.0-35.0) % [place] % (Auto) 9.7 H (1.0-6.0) % Eos % (Auto) 3.3 (1.5-5.0) % Baso % (Auto) 0.7 (0.0-3.0) % Gran # 1.14 L (1.4-6.5) Lymph # (Auto) 2.5 (1.2-3.4) [place] # (Auto) 0.4 (0.1-0.6) Eos # (Auto) 0.1 (0.0-0.7) Baso # (Auto) 0.03 (0.0-2.0) K/mm3 PT (9.4-12.5) SECONDS INR APTT (25.1-36.5) Seconds Sodium (132-148) mmol/L Potassium (3.6-5.0) mmol/L Chloride (98-107) mmol/L Carbon Dioxide (21-33) mmol/L Anion Gap (10-20) BUN (7-21) mg/dL Creatinine (0.8-1.5) mg/dl Est GFR ( Amer) Est GFR (Non-Af Amer) Random Glucose (70-110) mg/dL Calcium (8.4-10.5) mg/dL Phosphorus (2.5-4.5) mg/dL Magnesium (1.7-2.2) mg/dL Total Bilirubin (0.2-1.3) mg/dL AST (17-59) U/L ALT (7-56) U/L Alkaline Phosphatase (38-126) U/L Lactate Dehydrogenase (333-699) U/L Total Creatine Kinase (35-230) U/L Troponin I ng/mL Total Protein (5.8-8.3) g/dL Albumin (3.0-4.8) g/dL Globulin gm/dL Albumin/Globulin Ratio (1.1-1.8) Triglycerides (35-160) mg/dL Cholesterol (130-200) mg/dL LDL Cholesterol Direct (0-129) mg/dL HDL Cholesterol (29-60) mg/dL TSH 3rd Generation 9.07 H (0.46-4.68) mIU/mL Blood Type Blood Type Confirm A POSITIVE Antibody Screen BBK History Checked 04/16/18 04/16/18 04/16/18 Range/Units 03:15 00:35 00:35 WBC (4.5-11.0) 10^3/uL RBC (3.5-6.1) 10^6/uL Hgb (14.0-18.0) g/dL Hct (42.0-52.0) % MCV (80.0-105.0) fl MCH (25.0-35.0) pg MCHC (31.0-37.0) g/dl RDW (11.5-14.5) % Plt Count (120.0-450.0) 10^3/uL MPV (7.0-11.0) fl Gran % (50.0-68.0) % Lymph % (Auto) (22.0-35.0) % [place] % (Auto) (1.0-6.0) % Eos % (Auto) (1.5-5.0) % Baso % (Auto) (0.0-3.0) % Gran # (1.4-6.5) Lymph # (Auto) (1.2-3.4) [place] # (Auto) (0.1-0.6) Eos # (Auto) (0.0-0.7) Baso # (Auto) (0.0-2.0) K/mm3 PT 11.9 (9.4-12.5) SECONDS INR 1.04 APTT 53.0 H (25.1-36.5) Seconds Sodium 137 139 (132-148) mmol/L Potassium 3.9 4.0 (3.6-5.0) mmol/L Chloride 103 104 (98-107) mmol/L Carbon Dioxide 26 25 (21-33) mmol/L Anion Gap 11 14 (10-20) BUN 15 15 (7-21) mg/dL Creatinine 0.7 L 0.8 (0.8-1.5) mg/dl Est GFR ( Amer) > 60 > 60 Est GFR (Non-Af Amer) > 60 > 60 Random Glucose 282 H 307 H* (70-110) mg/dL Calcium 8.2 L 9.3 (8.4-10.5) mg/dL Phosphorus 3.3 (2.5-4.5) mg/dL Magnesium 1.9 (1.7-2.2) mg/dL Total Bilirubin 0.4 (0.2-1.3) mg/dL AST 30 (17-59) U/L ALT 29 (7-56) U/L Alkaline Phosphatase 88 (38-126) U/L Lactate Dehydrogenase 356 (333-699) U/L Total Creatine Kinase 164 (35-230) U/L Troponin I 0.15 H* ng/mL Total Protein 7.8 (5.8-8.3) g/dL Albumin 4.3 (3.0-4.8) g/dL Globulin 3.5 gm/dL Albumin/Globulin Ratio 1.2 (1.1-1.8) Triglycerides 287 H (35-160) mg/dL Cholesterol 204 H (130-200) mg/dL LDL Cholesterol Direct 140 H (0-129) mg/dL HDL Cholesterol 26 L (29-60) mg/dL TSH 3rd Generation (0.46-4.68) mIU/mL Blood Type Blood Type Confirm Antibody Screen BBK History Checked 04/16/18 04/16/18 Range/Units 00:35 00:30 WBC 4.1 L (4.5-11.0) 10^3/uL RBC 6.41 H (3.5-6.1) 10^6/uL Hgb 16.6 (14.0-18.0) g/dL Hct 49.9 (42.0-52.0) % MCV 77.8 L (80.0-105.0) fl MCH 25.9 (25.0-35.0) pg MCHC 33.3 (31.0-37.0) g/dl RDW 13.9 (11.5-14.5) % Plt Count 150 (120.0-450.0) 10^3/uL MPV 10.0 (7.0-11.0) fl Gran % 27.4 L (50.0-68.0) % Lymph % (Auto) 59.0 H (22.0-35.0) % [place] % (Auto) 10.2 H (1.0-6.0) % Eos % (Auto) 2.4 (1.5-5.0) % Baso % (Auto) 1.0 (0.0-3.0) % Gran # 1.12 L (1.4-6.5) Lymph # (Auto) 2.4 (1.2-3.4) [place] # (Auto) 0.4 (0.1-0.6) Eos # (Auto) 0.1 (0.0-0.7) Baso # (Auto) 0.04 (0.0-2.0) K/mm3 PT (9.4-12.5) SECONDS INR APTT (25.1-36.5) Seconds Sodium (132-148) mmol/L Potassium (3.6-5.0) mmol/L Chloride (98-107) mmol/L Carbon Dioxide (21-33) mmol/L Anion Gap (10-20) BUN (7-21) mg/dL Creatinine (0.8-1.5) mg/dl Est GFR ( Amer) Est GFR (Non-Af Amer) Random Glucose (70-110) mg/dL Calcium (8.4-10.5) mg/dL Phosphorus (2.5-4.5) mg/dL Magnesium (1.7-2.2) mg/dL Total Bilirubin (0.2-1.3) mg/dL AST (17-59) U/L ALT (7-56) U/L Alkaline Phosphatase (38-126) U/L Lactate Dehydrogenase (333-699) U/L Total Creatine Kinase (35-230) U/L Troponin I ng/mL Total Protein (5.8-8.3) g/dL Albumin (3.0-4.8) g/dL Globulin gm/dL Albumin/Globulin Ratio (1.1-1.8) Triglycerides (35-160) mg/dL Cholesterol (130-200) mg/dL LDL Cholesterol Direct (0-129) mg/dL HDL Cholesterol (29-60) mg/dL TSH 3rd Generation (0.46-4.68) mIU/mL Blood Type A POSITIVE Blood Type Confirm Antibody Screen Negative BBK History Checked No verified bt Laboratory Results - last 24 hr 04/16/18 04/16/18 04/16/18 00:30 00:35 00:35 WBC 4.1 L RBC 6.41 H Hgb 16.6 Hct 49.9 MCV 77.8 L MCH 25.9 MCHC 33.3 RDW 13.9 Plt Count 150 MPV 10.0 Gran % 27.4 L Lymph % (Auto) 59.0 H [place] % (Auto) 10.2 H Eos % (Auto) 2.4 Baso % (Auto) 1.0 Gran # 1.12 L Lymph # (Auto) 2.4 [place] # (Auto) 0.4 Eos # (Auto) 0.1 Baso # (Auto) 0.04 PT 11.9 INR 1.04 APTT 53.0 H Sodium Potassium Chloride Carbon Dioxide Anion Gap BUN Creatinine Est GFR ( Amer) Est GFR (Non-Af Amer) Random Glucose Calcium Phosphorus Magnesium Total Bilirubin AST ALT Alkaline Phosphatase Lactate Dehydrogenase Total Creatine Kinase Troponin I Total Protein Albumin Globulin Albumin/Globulin Ratio Triglycerides Cholesterol LDL Cholesterol Direct HDL Cholesterol TSH 3rd Generation Blood Type A POSITIVE Blood Type Confirm Antibody Screen Negative BBK History Checked No verified bt 04/16/18 04/16/18 04/16/18 00:35 03:15 03:15 WBC RBC Hgb Hct MCV MCH MCHC RDW Plt Count MPV Gran % Lymph % (Auto) [place] % (Auto) Eos % (Auto) Baso % (Auto) Gran # Lymph # (Auto) [place] # (Auto) Eos # (Auto) Baso # (Auto) PT INR APTT Sodium 139 137 Potassium 4.0 3.9 Chloride 104 103 Carbon Dioxide 25 26 Anion Gap 14 11 BUN 15 15 Creatinine 0.8 0.7 L Est GFR ( Amer) > 60 > 60 Est GFR (Non-Af Amer) > 60 > 60 Random Glucose 307 H* 282 H Calcium 9.3 8.2 L Phosphorus 3.3 Magnesium 1.9 Total Bilirubin 0.4 AST 30 ALT 29 Alkaline Phosphatase 88 Lactate Dehydrogenase 356 Total Creatine Kinase 164 Troponin I 0.15 H* Total Protein 7.8 Albumin 4.3 Globulin 3.5 Albumin/Globulin Ratio 1.2 Triglycerides 287 H Cholesterol 204 H LDL Cholesterol Direct 140 H HDL Cholesterol 26 L TSH 3rd Generation 9.07 H Blood Type Blood Type Confirm Antibody Screen BBK History Checked 04/16/18 04/16/18 03:15 03:15 WBC 4.2 L RBC 6.37 H Hgb 16.2 Hct 49.9 MCV 78.3 L MCH 25.4 MCHC 32.5 RDW 13.8 Plt Count 147 MPV 10.5 Gran % 27.0 L Lymph % (Auto) 59.3 H [place] % (Auto) 9.7 H Eos % (Auto) 3.3 Baso % (Auto) 0.7 Gran # 1.14 L Lymph # (Auto) 2.5 [place] # (Auto) 0.4 Eos # (Auto) 0.1 Baso # (Auto) 0.03 PT INR APTT Sodium Potassium Chloride Carbon Dioxide Anion Gap BUN Creatinine Est GFR ( Amer) Est GFR (Non-Af Amer) Random Glucose Calcium Phosphorus Magnesium Total Bilirubin AST ALT Alkaline Phosphatase Lactate Dehydrogenase Total Creatine Kinase Troponin I Total Protein Albumin Globulin Albumin/Globulin Ratio Triglycerides Cholesterol LDL Cholesterol Direct HDL Cholesterol TSH 3rd Generation Blood Type Blood Type Confirm A POSITIVE Antibody Screen BBK History Checked EKG/Cardiology Studies: Cardiology / EKG Studies 04/16/18 00:31 ELECTROCARDIOGRAM Stat Comment: Reason For Exam: cp 04/16/18 02:12 ELECTROCARDIOGRAM Urgent Comment: 12 lead EKG upon arrival in unit Reason For Exam: post ptca 04/16/18 02:15 ELECTROCARDIOGRAM DAILY Comment: Reason For Exam: chest pain 04/16/18 07:00 ELECTROCARDIOGRAM Urgent Comment: 12 lead EKG upon arrival in unit Reason For Exam: post ptca 04/17/18 02:15 ELECTROCARDIOGRAM DAILY Comment: Reason For Exam: chest pain Review of Systems - Review of Systems Review of Systems: 12 point ROS completed and negative except as described in HPI. Critical Care Progress Note - Nutrition Nutrition: Nutrition Category Date Time Status Heart Healthy Diet [DIET] Diets 04/16/18 Breakfast Active Assessment/Plan - Assessment and Plan (Free Text) Assessment: Mr. Oneal is a 42 y/o M with pmhx of IDDM not currently medicated who [place] [facility] for inferior wall STEMI. Code heart was called, pt was taken to the senior laboratory technician. 2 TAMIA placed- one in mid circumflex and one in mid RCA, and balloon angioplasty performed to OM2. Currently in ICU for observation. Plan: Cardio Inferior wall MS s/p 2 TAMIA and 1 balloon angioplasty: - Stents placed in Left circumflex, RCA placed by Dr. Gonzales - Integrilin drip at 2 mcg/kg running for 16 hours until this evening - Continue with ASA 81 daily, Lipitor 80 mg, Coreg 3.125 BID, Brilinta 90 BID, Ramipril 1.25 qd - EF 45-50% - Repeat EKG in AM shows NSR @ 92 bpm, no ST or T wave changes. 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 Endo Hx of DM: - ISS - Low - Glyburide 5 mg BID - HgbA1c pending Hypothyroidism - TSH 9.07 - f/u free t4 and t3 - Start Synthroid 25 mcg DVT ppx: Integrilin drip Patient seen, case reviewed and plan approved by Dr. Schuyler Kuhn. Adam Pedraza, PGY-1 <Anne Kuhn - Last Filed: 04/16/18 17:37> CCU Objective - Vital Signs / Intake & Output Vital Signs (Last 4 hours): Vital Signs Pulse Resp Pulse Ox 04/16/18 15:30 95 H 17 98 04/16/18 15:29 89 04/16/18 15:20 99 H 22 98 04/16/18 15:10 97 H 32 H 98 04/16/18 15:00 94 H 33 H 97 04/16/18 14:50 100 H 19 98 04/16/18 14:40 103 H 36 H 96 04/16/18 14:30 95 H 32 H 97 04/16/18 14:20 93 H 21 97 04/16/18 14:10 92 H 27 H 97 04/16/18 14:00 93 H 19 97 04/16/18 13:50 91 H 25 H 98 04/16/18 13:40 92 H 31 H 98 Intake and Output (Last 8hrs): Intake & Output 04/16/18 04/16/18 04/16/18 06:59 14:59 22:59 Weight 100.062 kg 99.79 kg - Medications Active Medications: Active Medications Generic Name Dose Route Start Last Admin Trade Name Freq PRN Reason Stop Dose Admin Aspirin 81 mg 04/16/18 10:00 04/16/18 11:09 Ecotrin PO 81 mg DAILY PAM Administration Atorvastatin Calcium 80 mg 04/16/18 17:00 Lipitor PO DIN PAM Glyburide 5 mg 04/16/18 17:00 Micronase PO 0800,1700 [facility] Eptifibatide 75 mg in 100 mls @ 16.01 mls/hr 04/16/18 00:45 04/16/18 12:48 Integrilin IV 04/16/18 18:45 16.01 mls/hr .Q6H15M PAM Administration Protocol 2 MCG/KG/MIN Insulin Human Lispro 0 units 04/16/18 07:30 04/16/18 12:54 Humalog Low SC 2 units ACHS PAM Administration Protocol Levothyroxine Sodium 25 mcg 04/17/18 06:00 Synthroid PO 0600 [facility] Metoprolol Tartrate 25 mg 04/16/18 10:00 04/16/18 11:10 Lopressor PO 25 mg BID PAM Administration Ramipril 1.25 mg 04/16/18 10:00 04/16/18 11:09 Altace PO 1.25 mg DAILY PAM Administration Ticagrelor 90 mg 04/16/18 10:00 04/16/18 11:09 Brilinta PO 90 mg BID PAM Administration - Patient Studies Lab Studies: Lab Studies 04/16/18 04/16/18 04/16/18 Range/Units 11:00 11:00 11:00 WBC (4.5-11.0) 10^3/uL RBC (3.5-6.1) 10^6/uL Hgb (14.0-18.0) g/dL Hct (42.0-52.0) % MCV (80.0-105.0) fl MCH (25.0-35.0) pg MCHC (31.0-37.0) g/dl RDW (11.5-14.5) % Plt Count (120.0-450.0) 10^3/uL MPV (7.0-11.0) fl Gran % (50.0-68.0) % Lymph % (Auto) (22.0-35.0) % [place] % (Auto) (1.0-6.0) % Eos % (Auto) (1.5-5.0) % Baso % (Auto) (0.0-3.0) % Gran # (1.4-6.5) Lymph # (Auto) (1.2-3.4) [place] # (Auto) (0.1-0.6) Eos # (Auto) (0.0-0.7) Baso # (Auto) (0.0-2.0) K/mm3 PT (9.4-12.5) SECONDS INR APTT (25.1-36.5) Seconds Sodium (132-148) mmol/L Potassium (3.6-5.0) mmol/L Chloride (98-107) mmol/L Carbon Dioxide (21-33) mmol/L Anion Gap (10-20) BUN (7-21) mg/dL Creatinine (0.8-1.5) mg/dl Est GFR ( Amer) Est GFR (Non-Af Amer) Random Glucose (70-110) mg/dL Calcium (8.4-10.5) mg/dL Phosphorus (2.5-4.5) mg/dL Magnesium (1.7-2.2) mg/dL Total Bilirubin (0.2-1.3) mg/dL AST (17-59) U/L ALT (7-56) U/L Alkaline Phosphatase (38-126) U/L Lactate Dehydrogenase 1048 H (333-699) U/L Total Creatine Kinase 1359 H (35-230) U/L CK-MB (CK-2) 34.0 H (0.0-3.6) ng/mL CK-MB (CK-2) % 2.5 (2.5-3.0) % Troponin I 48.90 H* D ng/mL Total Protein (5.8-8.3) g/dL Albumin (3.0-4.8) g/dL Globulin gm/dL Albumin/Globulin Ratio (1.1-1.8) Triglycerides (35-160) mg/dL Cholesterol (130-200) mg/dL LDL Cholesterol Direct (0-129) mg/dL HDL Cholesterol (29-60) mg/dL Free T4 1.23 (0.78-2.19) ng/dL Free T3 pg/mL 3.38 (2.77-5.27) pg/mL TSH 3rd Generation (0.46-4.68) mIU/mL Blood Type Blood Type Confirm Antibody Screen BBK History Checked 04/16/18 04/16/18 04/16/18 Range/Units 03:15 03:15 03:15 WBC 4.2 L (4.5-11.0) 10^3/uL RBC 6.37 H (3.5-6.1) 10^6/uL Hgb 16.2 (14.0-18.0) g/dL Hct 49.9 (42.0-52.0) % MCV 78.3 L (80.0-105.0) fl MCH 25.4 (25.0-35.0) pg MCHC 32.5 (31.0-37.0) g/dl RDW 13.8 (11.5-14.5) % Plt Count 147 (120.0-450.0) 10^3/uL MPV 10.5 (7.0-11.0) fl Gran % 27.0 L (50.0-68.0) % Lymph % (Auto) 59.3 H (22.0-35.0) % [place] % (Auto) 9.7 H (1.0-6.0) % Eos % (Auto) 3.3 (1.5-5.0) % Baso % (Auto) 0.7 (0.0-3.0) % Gran # 1.14 L (1.4-6.5) Lymph # (Auto) 2.5 (1.2-3.4) [place] # (Auto) 0.4 (0.1-0.6) Eos # (Auto) 0.1 (0.0-0.7) Baso # (Auto) 0.03 (0.0-2.0) K/mm3 PT (9.4-12.5) SECONDS INR APTT (25.1-36.5) Seconds Sodium (132-148) mmol/L Potassium (3.6-5.0) mmol/L Chloride (98-107) mmol/L Carbon Dioxide (21-33) mmol/L Anion Gap (10-20) BUN (7-21) mg/dL Creatinine (0.8-1.5) mg/dl Est GFR ( Amer) Est GFR (Non-Af Amer) Random Glucose (70-110) mg/dL Calcium (8.4-10.5) mg/dL Phosphorus (2.5-4.5) mg/dL Magnesium (1.7-2.2) mg/dL Total Bilirubin (0.2-1.3) mg/dL AST (17-59) U/L ALT (7-56) U/L Alkaline Phosphatase (38-126) U/L Lactate Dehydrogenase (333-699) U/L Total Creatine Kinase (35-230) U/L CK-MB (CK-2) (0.0-3.6) ng/mL CK-MB (CK-2) % (2.5-3.0) % Troponin I ng/mL Total Protein (5.8-8.3) g/dL Albumin (3.0-4.8) g/dL Globulin gm/dL Albumin/Globulin Ratio (1.1-1.8) Triglycerides (35-160) mg/dL Cholesterol (130-200) mg/dL LDL Cholesterol Direct (0-129) mg/dL HDL Cholesterol (29-60) mg/dL Free T4 (0.78-2.19) ng/dL Free T3 pg/mL (2.77-5.27) pg/mL TSH 3rd Generation 9.07 H (0.46-4.68) mIU/mL Blood Type Blood Type Confirm A POSITIVE Antibody Screen BBK History Checked 04/16/18 04/16/18 04/16/18 Range/Units 03:15 00:35 00:35 WBC (4.5-11.0) 10^3/uL RBC (3.5-6.1) 10^6/uL Hgb (14.0-18.0) g/dL Hct (42.0-52.0) % MCV (80.0-105.0) fl MCH (25.0-35.0) pg MCHC (31.0-37.0) g/dl RDW (11.5-14.5) % Plt Count (120.0-450.0) 10^3/uL MPV (7.0-11.0) fl Gran % (50.0-68.0) % Lymph % (Auto) (22.0-35.0) % [place] % (Auto) (1.0-6.0) % Eos % (Auto) (1.5-5.0) % Baso % (Auto) (0.0-3.0) % Gran # (1.4-6.5) Lymph # (Auto) (1.2-3.4) [place] # (Auto) (0.1-0.6) Eos # (Auto) (0.0-0.7) Baso # (Auto) (0.0-2.0) K/mm3 PT 11.9 (9.4-12.5) SECONDS INR 1.04 APTT 53.0 H (25.1-36.5) Seconds Sodium 137 139 (132-148) mmol/L Potassium 3.9 4.0 (3.6-5.0) mmol/L Chloride 103 104 (98-107) mmol/L Carbon Dioxide 26 25 (21-33) mmol/L Anion Gap 11 14 (10-20) BUN 15 15 (7-21) mg/dL Creatinine 0.7 L 0.8 (0.8-1.5) mg/dl Est GFR ( Amer) > 60 > 60 Est GFR (Non-Af Amer) > 60 > 60 Random Glucose 282 H 307 H* (70-110) mg/dL Calcium 8.2 L 9.3 (8.4-10.5) mg/dL Phosphorus 3.3 (2.5-4.5) mg/dL Magnesium 1.9 (1.7-2.2) mg/dL Total Bilirubin 0.4 (0.2-1.3) mg/dL AST 30 (17-59) U/L ALT 29 (7-56) U/L Alkaline Phosphatase 88 (38-126) U/L Lactate Dehydrogenase 356 (333-699) U/L Total Creatine Kinase 164 (35-230) U/L CK-MB (CK-2) (0.0-3.6) ng/mL CK-MB (CK-2) % (2.5-3.0) % Troponin I 0.15 H* ng/mL Total Protein 7.8 (5.8-8.3) g/dL Albumin 4.3 (3.0-4.8) g/dL Globulin 3.5 gm/dL Albumin/Globulin Ratio 1.2 (1.1-1.8) Triglycerides 287 H (35-160) mg/dL Cholesterol 204 H (130-200) mg/dL LDL Cholesterol Direct 140 H (0-129) mg/dL HDL Cholesterol 26 L (29-60) mg/dL Free T4 (0.78-2.19) ng/dL Free T3 pg/mL (2.77-5.27) pg/mL TSH 3rd Generation (0.46-4.68) mIU/mL Blood Type Blood Type Confirm Antibody Screen BBK History Checked 04/16/18 04/16/18 Range/Units 00:35 00:30 WBC 4.1 L (4.5-11.0) 10^3/uL RBC 6.41 H (3.5-6.1) 10^6/uL Hgb 16.6 (14.0-18.0) g/dL Hct 49.9 (42.0-52.0) % MCV 77.8 L (80.0-105.0) fl MCH 25.9 (25.0-35.0) pg MCHC 33.3 (31.0-37.0) g/dl RDW 13.9 (11.5-14.5) % Plt Count 150 (120.0-450.0) 10^3/uL MPV 10.0 (7.0-11.0) fl Gran % 27.4 L (50.0-68.0) % Lymph % (Auto) 59.0 H (22.0-35.0) % [place] % (Auto) 10.2 H (1.0-6.0) % Eos % (Auto) 2.4 (1.5-5.0) % Baso % (Auto) 1.0 (0.0-3.0) % Gran # 1.12 L (1.4-6.5) Lymph # (Auto) 2.4 (1.2-3.4) [place] # (Auto) 0.4 (0.1-0.6) Eos # (Auto) 0.1 (0.0-0.7) Baso # (Auto) 0.04 (0.0-2.0) K/mm3 PT (9.4-12.5) SECONDS INR APTT (25.1-36.5) Seconds Sodium (132-148) mmol/L Potassium (3.6-5.0) mmol/L Chloride (98-107) mmol/L Carbon Dioxide (21-33) mmol/L Anion Gap (10-20) BUN (7-21) mg/dL Creatinine (0.8-1.5) mg/dl Est GFR ( Amer) Est GFR (Non-Af Amer) Random Glucose (70-110) mg/dL Calcium (8.4-10.5) mg/dL Phosphorus (2.5-4.5) mg/dL Magnesium (1.7-2.2) mg/dL Total Bilirubin (0.2-1.3) mg/dL AST (17-59) U/L ALT (7-56) U/L Alkaline Phosphatase (38-126) U/L Lactate Dehydrogenase (333-699) U/L Total Creatine Kinase (35-230) U/L CK-MB (CK-2) (0.0-3.6) ng/mL CK-MB (CK-2) % (2.5-3.0) % Troponin I ng/mL Total Protein (5.8-8.3) g/dL Albumin (3.0-4.8) g/dL Globulin gm/dL Albumin/Globulin Ratio (1.1-1.8) Triglycerides (35-160) mg/dL Cholesterol (130-200) mg/dL LDL Cholesterol Direct (0-129) mg/dL HDL Cholesterol (29-60) mg/dL Free T4 (0.78-2.19) ng/dL Free T3 pg/mL (2.77-5.27) pg/mL TSH 3rd Generation (0.46-4.68) mIU/mL Blood Type A POSITIVE Blood Type Confirm Antibody Screen Negative BBK History Checked No verified bt Laboratory Results - last 24 hr 04/16/18 04/16/18 04/16/18 00:30 00:35 00:35 WBC 4.1 L RBC 6.41 H Hgb 16.6 Hct 49.9 MCV 77.8 L MCH 25.9 MCHC 33.3 RDW 13.9 Plt Count 150 MPV 10.0 Gran % 27.4 L Lymph % (Auto) 59.0 H [place] % (Auto) 10.2 H Eos % (Auto) 2.4 Baso % (Auto) 1.0 Gran # 1.12 L Lymph # (Auto) 2.4 [place] # (Auto) 0.4 Eos # (Auto) 0.1 Baso # (Auto) 0.04 PT 11.9 INR 1.04 APTT 53.0 H Sodium Potassium Chloride Carbon Dioxide Anion Gap BUN Creatinine Est GFR ( Amer) Est GFR (Non-Af Amer) Random Glucose Calcium Phosphorus Magnesium Total Bilirubin AST ALT Alkaline Phosphatase Lactate Dehydrogenase Total Creatine Kinase CK-MB (CK-2) CK-MB (CK-2) % Troponin I Total Protein Albumin Globulin Albumin/Globulin Ratio Triglycerides Cholesterol LDL Cholesterol Direct HDL Cholesterol Free T4 Free T3 pg/mL TSH 3rd Generation Blood Type A POSITIVE Blood Type Confirm Antibody Screen Negative BBK History Checked No verified bt 04/16/18 04/16/18 04/16/18 00:35 03:15 03:15 WBC RBC Hgb Hct MCV MCH MCHC RDW Plt Count MPV Gran % Lymph % (Auto) [place] % (Auto) Eos % (Auto) Baso % (Auto) Gran # Lymph # (Auto) [place] # (Auto) Eos # (Auto) Baso # (Auto) PT INR APTT Sodium 139 137 Potassium 4.0 3.9 Chloride 104 103 Carbon Dioxide 25 26 Anion Gap 14 11 BUN 15 15 Creatinine 0.8 0.7 L Est GFR ( Amer) > 60 > 60 Est GFR (Non-Af Amer) > 60 > 60 Random Glucose 307 H* 282 H Calcium 9.3 8.2 L Phosphorus 3.3 Magnesium 1.9 Total Bilirubin 0.4 AST 30 ALT 29 Alkaline Phosphatase 88 Lactate Dehydrogenase 356 Total Creatine Kinase 164 CK-MB (CK-2) CK-MB (CK-2) % Troponin I 0.15 H* Total Protein 7.8 Albumin 4.3 Globulin 3.5 Albumin/Globulin Ratio 1.2 Triglycerides 287 H Cholesterol 204 H LDL Cholesterol Direct 140 H HDL Cholesterol 26 L Free T4 Free T3 pg/mL TSH 3rd Generation 9.07 H Blood Type Blood Type Confirm Antibody Screen BBK History Checked 04/16/18 04/16/18 04/16/18 03:15 03:15 11:00 WBC 4.2 L RBC 6.37 H Hgb 16.2 Hct 49.9 MCV 78.3 L MCH 25.4 MCHC 32.5 RDW 13.8 Plt Count 147 MPV 10.5 Gran % 27.0 L Lymph % (Auto) 59.3 H [place] % (Auto) 9.7 H Eos % (Auto) 3.3 Baso % (Auto) 0.7 Gran # 1.14 L Lymph # (Auto) 2.5 [place] # (Auto) 0.4 Eos # (Auto) 0.1 Baso # (Auto) 0.03 PT INR APTT Sodium Potassium Chloride Carbon Dioxide Anion Gap BUN Creatinine Est GFR ( Amer) Est GFR (Non-Af Amer) Random Glucose Calcium Phosphorus Magnesium Total Bilirubin AST ALT Alkaline Phosphatase Lactate Dehydrogenase 1048 H Total Creatine Kinase 1359 H CK-MB (CK-2) 34.0 H CK-MB (CK-2) % 2.5 Troponin I 48.90 H* D Total Protein Albumin Globulin Albumin/Globulin Ratio Triglycerides Cholesterol LDL Cholesterol Direct HDL Cholesterol Free T4 Free T3 pg/mL TSH 3rd Generation Blood Type Blood Type Confirm A POSITIVE Antibody Screen BBK History Checked 04/16/18 04/16/18 11:00 11:00 WBC RBC Hgb Hct MCV MCH MCHC RDW Plt Count MPV Gran % Lymph % (Auto) [place] % (Auto) Eos % (Auto) Baso % (Auto) Gran # Lymph # (Auto) [place] # (Auto) Eos # (Auto) Baso # (Auto) PT INR APTT Sodium Potassium Chloride Carbon Dioxide Anion Gap BUN Creatinine Est GFR ( Amer) Est GFR (Non-Af Amer) Random Glucose Calcium Phosphorus Magnesium Total Bilirubin AST ALT Alkaline Phosphatase Lactate Dehydrogenase Total Creatine Kinase CK-MB (CK-2) CK-MB (CK-2) % Troponin I Total Protein Albumin Globulin Albumin/Globulin Ratio Triglycerides Cholesterol LDL Cholesterol Direct HDL Cholesterol Free T4 1.23 Free T3 pg/mL 3.38 TSH 3rd Generation Blood Type Blood Type Confirm Antibody Screen BBK History Checked Radiology Impressions: Radiology Impressions Chest X-Ray 04/16/18 00:31 IMPRESSION: No active disease. EKG/Cardiology Studies: Cardiology / EKG Studies 04/16/18 00:31 ELECTROCARDIOGRAM Stat Comment: Reason For Exam: cp 04/16/18 02:12 ELECTROCARDIOGRAM Urgent Comment: 12 lead EKG upon arrival in unit Reason For Exam: post ptca 04/16/18 02:15 ELECTROCARDIOGRAM DAILY Comment: Reason For Exam: chest pain 04/16/18 07:00 ELECTROCARDIOGRAM Urgent Comment: 12 lead EKG upon arrival in unit Reason For Exam: post ptca 04/17/18 02:15 ELECTROCARDIOGRAM DAILY Comment: Reason For Exam: chest pain Critical Care Progress Note - Nutrition Nutrition: Nutrition Category Date Time Status Heart Healthy Diet [DIET] Diets 04/16/18 Breakfast Active Addendum Addendum: 04/16/18 17:37 ICU Attending Addendum Patient seen and examined. Case reviewed on round with housestaff. Agree with resident note above with the following additions/exceptions: 42M with DM2 admitted with STEMI s/p stent to RCA and Lcx, balloon of OM1, EKG shows good resolution of infarct post mi cont dual antiplat as per cards statin BB repeat echo diab control with insulin scale monitor in ICU Rest of care as above Anne Kuhn MD Pulmonary Critical Care and Sleep Medicine
[2018-04-16] MEDS: Insulin Lispro (humaLOG) LOW Coverage SC SCH ×3 (11:09→18:25)
[2018-04-16 12:00] LABS: CK MB% 2.5 % (2.5-3.0); TROPONIN I 48.9 ng/mL
--- NOTE | 2018-04-16 12:24 | PN ---
DATE: 04/16/2018 LOCATION: The patient is currently in ICU 128, bed 5. REASON FOR CONSULTATION AND FOLLOWUP: Acute inferolateral VA, status post coronary stent, status post multivessel angioplasty. SUBJECTIVE: The patient denies any chest pain, shortness of breath, or any palpitation. OBJECTIVE: GENERAL: Not in apparent distress. VITAL SIGNS: Heart rate 111, blood pressure 130/80. HEENT: PERRLA. Extraocular muscles intact. NECK: Supple. No carotid bruit or thyromegaly. CHEST: Clear to auscultation. HEART: S1 and S2 regular. ABDOMEN: Soft. EXTREMITIES: Clubbing and cyanosis negative. DIAGNOSTIC DATA: EKG shows complete resolution of elevation in inferior as well as lateral lead. LABORATORY DATA: Blood work as follows: WBC 4.2, hemoglobin 16.2, hematocrit 49.9, and platelet count 167. Chemistry shows sodium 137, potassium 3.9, chloride 103, carbon dioxide 26, anion gap of 11, BUN 15, and creatinine 0.7. Troponin pending. TSH 9.07. Triglyceride 287, cholesterol 204, LDL 140, HDL 26. 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 RECOMMENDATIONS: Continue baby aspirin. Continue Brovana. Continue low-dose ramipril as blood pressure tolerates. Since the patient is tachycardic, we will change to metoprolol 25 p.o. b.i.d. as blood pressure tolerates. Continue atorvastatin. We will start low dose of Synthroid. Echo to assess LV function. We will discontinue IV fluid. Further recommendation depending upon . Continue IV Integrilin until 6 p.m. We will repeat EKG tomorrow and follow up troponin trend. Emphasis made on weight reduction. Complete cessation of smoking and compliance with the medication. We will get hemoglobin A1c as well. We will follow with you. Thank you Dr. Espinoza for providing us the opportunity in taking care of the patient, Fercho Oneal. Stacie Gonzales MD [facility] # [id number]
--- NOTE | 2018-04-16 12:39 | RAD ---
Date of service: 04/16/2018 HISTORY: cp COMPARISON: No prior. FINDINGS: LUNGS: No active pulmonary disease. PLEURA: No significant pleural effusion identified, no pneumothorax apparent. CARDIOVASCULAR: No aortic atherosclerotic calcification present. Normal cardiac size. No pulmonary vascular congestion. OSSEOUS STRUCTURES: No significant abnormalities. VISUALIZED UPPER ABDOMEN: Normal. OTHER FINDINGS: None. IMPRESSION: No active disease.
--- NOTE | 2018-04-16 17:50 | CARD ---
APPROVED REPORT Date of service: 04/16/2018 EKG Measurement Heart [id number] CT 124P60 [id number] <Conclusion> Normal sinus rhythm Normal Electrocardiogram
--- NOTE | 2018-04-16 18:00 | CARD ---
APPROVED REPORT Date of service: 04/16/2018 EKG Measurement Heart [id number] [place] 122P47 [id number] <Conclusion> Normal sinus rhythm Low voltage QRS ST elevation, consider inferolateral injury or acute infarct ACUTE [place] Abnormal ECG
--- NOTE | 2018-04-16 19:43 | CARD ---
APPROVED REPORT Date of service: 04/16/2018 EXAM: Two-dimensional and M-mode echocardiogram with Doppler and color Doppler. 2D DIMENSIONS IVSd0.9 (0.7-1.1cm)LVDd4.1 (3.9-5.9cm) PWd1.0 (0.7-1.1cm)LVDs2.6 (2.5-4.0cm) FS (%) 35.3 %LVEF (%)65.2 (>50%) M-Mode DIMENSIONS Left Atrium (MM)3.80 (2.5-4.0cm)Aortic Root3.50 (2.2-3.7cm) Aortic Cusp Exc.1.90 (1.5-2.0cm) Aortic Valve AoV Peak Jiulvynw835.0cm/Beni Peak GR.10mmHg Mitral Valve MV E Wgkvwhiq94.0cm/sMV A Zfnunkmy72.1cm/sE/A ratio1.2 TDI Lateral E' Peak V9.07cm/sMedial E' Peak V9.75cm/sE/Lateral E'8.7 E/Medial E'8.1 Tricuspid Valve TR Peak Kopdwkdt463za/sRAP [id number] Peak Gr.28mmHg [id number] LEFT VENTRICLE The left ventricle is normal size. There is normal left ventricular wall thickness. Left ventricle systolic function is low normal.EF-50-55% There is mild hypokinesis in the mid-inferolateral wall. The left ventricular diastolic function is normal. No left ventricle thrombus noted on this study. There is no ventricular septal defect visualized. There is no left ventricular aneurysm. There is no mass noted in the left ventricle. RIGHT VENTRICLE The right ventricle is normal size. There is normal right ventricular wall thickness. The right ventricular systolic function is normal. ATRIA The left atrium is borderline dilated. The right atrium size is normal. The interatrial septum is intact with no evidence for an atrial septal defect. AORTIC VALVE The aortic valve is thickened but opens well. The aortic valve is mildly to moderately sclerotic. No aortic regurgitation is present. There is no aortic valvular stenosis. There is no aortic valvular vegetation. MITRAL VALVE The mitral valve is thickened but opens well. Mitral regurgitation is trace. There is no mitral valve stenosis. There is no evidence of mitral valve prolapse. TRICUSPID VALVE The tricuspid valve leaflets are thickened , but open well. There is trace tricuspid regurgitation.RVSP_38 mmof Hg. There is no tricuspid valve stenosis. There is no tricuspid valve prolapse or vegetation. PULMONIC VALVE The pulmonary valve is normal in structure. There is no pulmonic valvular regurgitation. There is no pulmonic valvular stenosis. GREAT VESSELS The aortic root is normal in size. The ascending aorta is normal in size. The pulmonary artery is normal. The IVC is normal in size and collapses >50% with inspiration. PERICARDIAL EFFUSION There is no pleural effusion. There is a Trivial PE pericardial effusion. <Conclusion> The left ventricle is normal size. There is normal left ventricular wall thickness. Left ventricle systolic function is low normal.EF-50-55% Mitral regurgitation is trace. There is trace tricuspid regurgitation.RVSP_38 mmof Hg. There is mild hypokinesis in the mid-inferolateral wall. The IVC is normal in size and collapses >50% with inspiration. There is a Trivial PE pericardial effusion. S/p Code STEMI,S/p Multivessel PTCA
[2018-04-17 05:40] LABS: BASO # 0.02 K/mm3 (0.0-2.0); BASO % 0.4 % (0.0-3.0); EOS # 0.2 (0.0-0.7); EOS % 3.3 % (1.5-5.0); GRAN # 1.88 (1.4-6.5); GRAN % 35.9 % (50.0-68.0); HEMOGLOBIN 15.4 g/dL (14.0-18.0); LYMPH # 2.8 (1.2-3.4); LYMPH % 52.9 % (22.0-35.0); MEAN CORPUSCULAR HEMOGLOBIN 24.7 pg (25.0-35.0); MEAN CORPUSCULAR HGB CONC 31.7 g/dl (31.0-37.0); MEAN PLATELET VOLUME 10.2 fl (7.0-11.0); MONO # 0.4 (0.1-0.6); MONO % 7.5 % (1.0-6.0); RBC 6.23 10^6/uL (3.5-6.1); WHITE BLOOD COUNT 5.2 10^3/uL (4.5-11.0)
[2018-04-17 05:53] LABS: ALB/GLOB RATIO 1.1 (1.1-1.8); ALBUMIN 3.8 g/dL (3.0-4.8); ALT/SGPT 40 U/L (7-56); AST/SGOT 80 U/L (17-59); BLOOD UREA NITROGEN 11 mg/dL (7-21); CALCIUM 8.9 mg/dL (8.4-10.5); GFR NON-AFRICAN AMERICAN > 60
[2018-04-17 06:08] LABS: CK MB% 1.1 % (2.5-3.0); CK-MB 7.8 ng/mL (0.0-3.6)
[2018-04-17] MEDS: Levothyroxine 25 MCG TAB PO SCH (06:25)
[2018-04-17] MEDS: Insulin Lispro (humaLOG) LOW Coverage SC SCH ×5 (07:58→22:34)
--- NOTE | 2018-04-17 08:00 | CP.CCUPN ---
<Adam Pedraza - Last Filed: 04/17/18 12:28> CCU Subjective - Physician Review Subjective (Free Text): Adam Pedraza PGY-1 Progress Note for ICU Patient seen and evaluated at bedside. No acute events reported overnight. Currently, patient denies chest pain, shortness of breath, pain at L radial cath. site, numbness, tingling, shortness of breath, dizziness, blurry vision and headaches. CCU Objective - Vital Signs / Intake & Output Vital Signs (Last 4 hours): Vital Signs Pulse Resp Pulse Ox 04/17/18 07:10 92 H 96 04/17/18 07:00 92 H 95 04/17/18 06:50 89 12 96 04/17/18 06:40 95 H 17 98 04/17/18 06:30 99 H 27 H 95 04/17/18 06:20 94 H 32 H 96 04/17/18 06:10 97 H 27 H 96 04/17/18 06:00 94 H 31 H 96 04/17/18 05:50 95 H 23 98 04/17/18 05:40 92 H 29 H 96 04/17/18 05:30 99 H 21 97 04/17/18 05:20 92 H 30 H 97 04/17/18 05:10 99 H 97 04/17/18 05:00 95 H 22 95 04/17/18 04:50 90 26 H 95 04/17/18 04:40 91 H 22 93 L 04/17/18 04:30 98 H 12 95 04/17/18 04:20 93 H 19 97 04/17/18 04:10 26 H 95 04/17/18 04:00 91 H 26 H 96 Intake and Output (Last 8hrs): Intake & Output 04/16/18 04/17/18 04/17/18 22:59 06:59 14:59 Intake Total 1280 Output Total 1700 600 Balance -420 -600 Weight 99.79 kg Intake: Oral 780 Other 500 Output: Urine 600 Urine, Voided 600 Urine/Stool Mix 1700 Other: # Bowel Movements 2 - Physical Exam Head: Positive for: Atraumatic, Normocephalic Pupils: Positive for: PERRL Extroacular Muscles: Positive for: EOMI Conjunctiva: Positive for: Normal Mouth: Positive for: Moist Mucous Membranes Neck: Positive for: Normal Range of Motion Respiratory/Chest: Positive for: Clear to Auscultation, Good Air Exchange. Negative for: Respiratory Distress, Accessory Muscle Use Cardiovascular: Positive for: Normal S1, S2. Negative for: Murmurs, Tachycardic Abdomen: Negative for: Tenderness, Distention, Peritoneal Signs Back: Positive for: Normal Inspection. Negative for: CVA Tenderness Upper Extremity: Positive for: Normal Inspection, Other (No numbness/tingling in hands). Negative for: Cyanosis, Edema Lower Extremity: Positive for: Normal Inspection. Negative for: Edema Neurological: Positive for: GCS=15, CN II-XII Intact, Speech Normal Skin: Positive for: Warm, Dry, Normal Color. Negative for: Rashes Psychiatric: Positive for: Alert, Oriented x 3, Normal Insight, Normal Concentration - Medications Active Medications: Active Medications Generic Name Dose Route Start Last Admin Trade Name Freq PRN Reason Stop Dose Admin Aspirin 81 mg 04/16/18 10:00 04/16/18 11:09 Ecotrin PO 81 mg DAILY PAM Administration Glyburide 5 mg 04/16/18 17:00 04/16/18 18:24 Micronase PO 5 mg 0800,1700 PAM Administration Insulin Human Lispro 0 units 04/16/18 07:30 04/16/18 18:25 Humalog Low SC 2 units ACHS PAM Administration Protocol Levothyroxine Sodium 25 mcg 04/17/18 06:00 04/17/18 06:25 Synthroid PO 25 mcg 0600 PAM Administration Metoprolol Tartrate 25 mg 04/16/18 10:00 04/16/18 18:24 Lopressor PO 25 mg BID PAM Administration Ticagrelor 90 mg 04/16/18 10:00 04/16/18 18:24 Brilinta PO 90 mg BID PAM Administration - Patient Studies Lab Studies: Lab Studies 04/17/18 04/17/18 04/16/18 Range/Units 05:00 05:00 21:46 WBC 5.2 D (4.5-11.0) 10^3/uL RBC 6.23 H (3.5-6.1) 10^6/uL Hgb 15.4 (14.0-18.0) g/dL Hct 48.6 (42.0-52.0) % MCV 78.0 L (80.0-105.0) fl MCH 24.7 L (25.0-35.0) pg MCHC 31.7 (31.0-37.0) g/dl RDW 14.0 (11.5-14.5) % Plt Count 145 (120.0-450.0) 10^3/uL MPV 10.2 (7.0-11.0) fl Gran % 35.9 L (50.0-68.0) % Lymph % (Auto) 52.9 H (22.0-35.0) % [place] % (Auto) 7.5 H (1.0-6.0) % Eos % (Auto) 3.3 (1.5-5.0) % Baso % (Auto) 0.4 (0.0-3.0) % Gran # 1.88 (1.4-6.5) Lymph # (Auto) 2.8 (1.2-3.4) [place] # (Auto) 0.4 (0.1-0.6) Eos # (Auto) 0.2 (0.0-0.7) Baso # (Auto) 0.02 (0.0-2.0) K/mm3 Sodium 139 (132-148) mmol/L Potassium 4.0 (3.6-5.0) mmol/L Chloride 106 (98-107) mmol/L Carbon Dioxide 27 (21-33) mmol/L Anion Gap 10 (10-20) BUN 11 (7-21) mg/dL Creatinine 0.6 L (0.8-1.5) mg/dl Est GFR ( Amer) > 60 Est GFR (Non-Af Amer) > 60 POC Glucose (mg/dL) 204 H (65-110) mg/dL Random Glucose 253 H (70-110) mg/dL Calcium 8.9 (8.4-10.5) mg/dL Phosphorus 3.5 (2.5-4.5) mg/dL Magnesium 2.1 (1.7-2.2) mg/dL Total Bilirubin 0.3 (0.2-1.3) mg/dL AST 80 H D (17-59) U/L ALT 40 (7-56) U/L Alkaline Phosphatase 73 (38-126) U/L Lactate Dehydrogenase 1201 H (333-699) U/L Total Creatine Kinase 687 H (35-230) U/L CK-MB (CK-2) 7.8 H (0.0-3.6) ng/mL CK-MB (CK-2) % 1.1 L (2.5-3.0) % Troponin I 21.70 H* D ng/mL Total Protein 7.2 (5.8-8.3) g/dL Albumin 3.8 (3.0-4.8) g/dL Globulin 3.4 gm/dL Albumin/Globulin Ratio 1.1 (1.1-1.8) Free T4 (0.78-2.19) ng/dL Free T3 pg/mL (2.77-5.27) pg/mL 04/16/18 04/16/18 04/16/18 Range/Units 16:08 11:36 11:00 WBC (4.5-11.0) 10^3/uL RBC (3.5-6.1) 10^6/uL Hgb (14.0-18.0) g/dL Hct (42.0-52.0) % MCV (80.0-105.0) fl MCH (25.0-35.0) pg MCHC (31.0-37.0) g/dl RDW (11.5-14.5) % Plt Count (120.0-450.0) 10^3/uL MPV (7.0-11.0) fl Gran % (50.0-68.0) % Lymph % (Auto) (22.0-35.0) % [place] % (Auto) (1.0-6.0) % Eos % (Auto) (1.5-5.0) % Baso % (Auto) (0.0-3.0) % Gran # (1.4-6.5) Lymph # (Auto) (1.2-3.4) [place] # (Auto) (0.1-0.6) Eos # (Auto) (0.0-0.7) Baso # (Auto) (0.0-2.0) K/mm3 Sodium (132-148) mmol/L Potassium (3.6-5.0) mmol/L Chloride (98-107) mmol/L Carbon Dioxide (21-33) mmol/L Anion Gap (10-20) BUN (7-21) mg/dL Creatinine (0.8-1.5) mg/dl Est GFR ( Amer) Est GFR (Non-Af Amer) POC Glucose (mg/dL) 241 H 237 H (65-110) mg/dL Random Glucose (70-110) mg/dL Calcium (8.4-10.5) mg/dL Phosphorus (2.5-4.5) mg/dL Magnesium (1.7-2.2) mg/dL Total Bilirubin (0.2-1.3) mg/dL AST (17-59) U/L ALT (7-56) U/L Alkaline Phosphatase (38-126) U/L Lactate Dehydrogenase (333-699) U/L Total Creatine Kinase (35-230) U/L CK-MB (CK-2) (0.0-3.6) ng/mL CK-MB (CK-2) % (2.5-3.0) % Troponin I ng/mL Total Protein (5.8-8.3) g/dL Albumin (3.0-4.8) g/dL Globulin gm/dL Albumin/Globulin Ratio (1.1-1.8) Free T4 1.23 (0.78-2.19) ng/dL Free T3 pg/mL (2.77-5.27) pg/mL 04/16/18 04/16/18 Range/Units 11:00 11:00 WBC (4.5-11.0) 10^3/uL RBC (3.5-6.1) 10^6/uL Hgb (14.0-18.0) g/dL Hct (42.0-52.0) % MCV (80.0-105.0) fl MCH (25.0-35.0) pg MCHC (31.0-37.0) g/dl RDW (11.5-14.5) % Plt Count (120.0-450.0) 10^3/uL MPV (7.0-11.0) fl Gran % (50.0-68.0) % Lymph % (Auto) (22.0-35.0) % [place] % (Auto) (1.0-6.0) % Eos % (Auto) (1.5-5.0) % Baso % (Auto) (0.0-3.0) % Gran # (1.4-6.5) Lymph # (Auto) (1.2-3.4) [place] # (Auto) (0.1-0.6) Eos # (Auto) (0.0-0.7) Baso # (Auto) (0.0-2.0) K/mm3 Sodium (132-148) mmol/L Potassium (3.6-5.0) mmol/L Chloride (98-107) mmol/L Carbon Dioxide (21-33) mmol/L Anion Gap (10-20) BUN (7-21) mg/dL Creatinine (0.8-1.5) mg/dl Est GFR ( Amer) Est GFR (Non-Af Amer) POC Glucose (mg/dL) (65-110) mg/dL Random Glucose (70-110) mg/dL Calcium (8.4-10.5) mg/dL Phosphorus (2.5-4.5) mg/dL Magnesium (1.7-2.2) mg/dL Total Bilirubin (0.2-1.3) mg/dL AST (17-59) U/L ALT (7-56) U/L Alkaline Phosphatase (38-126) U/L Lactate Dehydrogenase 1048 H (333-699) U/L Total Creatine Kinase 1359 H (35-230) U/L CK-MB (CK-2) 34.0 H (0.0-3.6) ng/mL CK-MB (CK-2) % 2.5 (2.5-3.0) % Troponin I 48.90 H* D ng/mL Total Protein (5.8-8.3) g/dL Albumin (3.0-4.8) g/dL Globulin gm/dL Albumin/Globulin Ratio (1.1-1.8) Free T4 (0.78-2.19) ng/dL Free T3 pg/mL 3.38 (2.77-5.27) pg/mL Laboratory Results - last 24 hr 04/16/18 04/16/18 04/16/18 11:00 11:00 11:00 WBC RBC Hgb Hct MCV MCH MCHC RDW Plt Count MPV Gran % Lymph % (Auto) [place] % (Auto) Eos % (Auto) Baso % (Auto) Gran # Lymph # (Auto) [place] # (Auto) Eos # (Auto) Baso # (Auto) Sodium Potassium Chloride Carbon Dioxide Anion Gap BUN Creatinine Est GFR ( Amer) Est GFR (Non-Af Amer) POC Glucose (mg/dL) Random Glucose Calcium Phosphorus Magnesium Total Bilirubin AST ALT Alkaline Phosphatase Lactate Dehydrogenase 1048 H Total Creatine Kinase 1359 H CK-MB (CK-2) 34.0 H CK-MB (CK-2) % 2.5 Troponin I 48.90 H* D Total Protein Albumin Globulin Albumin/Globulin Ratio Free T4 1.23 Free T3 pg/mL 3.38 04/16/18 04/16/18 04/16/18 11:36 16:08 21:46 WBC RBC Hgb Hct MCV MCH MCHC RDW Plt Count MPV Gran % Lymph % (Auto) [place] % (Auto) Eos % (Auto) Baso % (Auto) Gran # Lymph # (Auto) [place] # (Auto) Eos # (Auto) Baso # (Auto) Sodium Potassium Chloride Carbon Dioxide Anion Gap BUN Creatinine Est GFR ( Amer) Est GFR (Non-Af Amer) POC Glucose (mg/dL) 237 H 241 H 204 H Random Glucose Calcium Phosphorus Magnesium Total Bilirubin AST ALT Alkaline Phosphatase Lactate Dehydrogenase Total Creatine Kinase CK-MB (CK-2) CK-MB (CK-2) % Troponin I Total Protein Albumin Globulin Albumin/Globulin Ratio Free T4 Free T3 pg/mL 04/17/18 04/17/18 05:00 05:00 WBC 5.2 D RBC 6.23 H Hgb 15.4 Hct 48.6 MCV 78.0 L MCH 24.7 L MCHC 31.7 RDW 14.0 Plt Count 145 MPV 10.2 Gran % 35.9 L Lymph % (Auto) 52.9 H [place] % (Auto) 7.5 H Eos % (Auto) 3.3 Baso % (Auto) 0.4 Gran # 1.88 Lymph # (Auto) 2.8 [place] # (Auto) 0.4 Eos # (Auto) 0.2 Baso # (Auto) 0.02 Sodium 139 Potassium 4.0 Chloride 106 Carbon Dioxide 27 Anion Gap 10 BUN 11 Creatinine 0.6 L Est GFR ( Amer) > 60 Est GFR (Non-Af Amer) > 60 POC Glucose (mg/dL) Random Glucose 253 H Calcium 8.9 Phosphorus 3.5 Magnesium 2.1 Total Bilirubin 0.3 AST 80 H D ALT 40 Alkaline Phosphatase 73 Lactate Dehydrogenase 1201 H Total Creatine Kinase 687 H CK-MB (CK-2) 7.8 H CK-MB (CK-2) % 1.1 L Troponin I 21.70 H* D Total Protein 7.2 Albumin 3.8 Globulin 3.4 Albumin/Globulin Ratio 1.1 Free T4 Free T3 pg/mL Radiology Impressions: Radiology Impressions Chest X-Ray 04/16/18 00:31 IMPRESSION: No active disease. EKG/Cardiology Studies: Cardiology / EKG Studies 04/16/18 07:00 ELECTROCARDIOGRAM Urgent Comment: 12 lead EKG upon arrival in unit Reason For Exam: post ptca 04/17/18 EKG [ELECTROCARDIOGRAM] Routine Comment: Reason For Exam: f/u 04/17/18 02:15 ELECTROCARDIOGRAM DAILY Comment: Reason For Exam: chest pain Fingerstick Blood Sugar Results: 204 Review of Systems - Review of Systems Review of Systems: 12 point ROS completed and negative except as described in HPI Critical Care Progress Note - Nutrition Nutrition: Nutrition Category Date Time Status Heart Healthy Diet [DIET] Diets 04/17/18 Breakfast Active Assessment/Plan - Assessment and Plan (Free Text) Assessment: 42 y/o M with pmhx of IDDM not currently medicated [place] inferior wall STEMI. 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 2 TAMIA placed- one in mid circumflex and one in mid RCA, and balloon angioplasty performed to OM2. Currently in ICU for observation. Plan: Cardio Inferior wall IN s/p 2 TAMIA and 1 balloon angioplasty: - Integrilin drip discontinued last night - Trops downtrending - Stents placed in Left circumflex, RCA placed by Dr. Gonzales - Continue with ASA 81 daily, Lipitor 80 mg, Metoprolol 25 mg BID, Brilinta 90 BID, Ramipril 1.25 qd - EF 45-50% - 04/16/18 EKG in AM shows NSR @ 92 bpm, no ST or T wave changes. - Repeat EKG 04/17/18 NSR @ 92 bpm, T wave inversions in inferior leads III and aVF - 04/16/18 ECHO shows EF 55%, trivial pericardial effusion, mild hypokinesis in inferolateral wall - Ignition Expert: Dr Gonzales HLD - LDL 140, cholesterol 204, TG 287 - Lipitor 80 mg - HHD - Smoking cessation, diet modification. Endo Hx of DM: - ISS - Low - Glyburide 5 mg BID - HgbA1c pending Subclinical Hypothyroidism - TSH 9.07 - Normal free t4 and t3 - Synthroid 25 mcg Dispo: Downgrade to telemetry per Dr. Gonzales Patient seen, case reviewed and plan approved by Dr. Schuyler Kuhn. Adam Pedraza, PGY-1 <Anne Kuhn - Last Filed: 04/17/18 17:30> CCU Objective - Vital Signs / Intake & Output Vital Signs (Last 4 hours): Vital Signs Pulse BP 04/17/18 17:23 102 H 98/69 L Intake and Output (Last 8hrs): Intake & Output 04/17/18 04/17/18 04/17/18 06:59 14:59 22:59 Output Total 600 Balance -600 Output: Urine 600 Urine, Voided 600 Other: # Bowel Movements 2 - Medications Active Medications: Active Medications Generic Name Dose Route Start Last Admin Trade Name Freq PRN Reason Stop Dose Admin Aspirin 81 mg 04/16/18 10:00 04/17/18 09:06 Ecotrin PO 81 mg DAILY PAM Administration Atorvastatin Calcium 80 mg 04/17/18 17:00 04/17/18 16:56 Lipitor PO 80 mg DIN PAM Administration Glyburide 10 mg 04/17/18 10:36 04/17/18 16:56 Micronase PO Not Given 0800,1700 [facility] Insulin Human Lispro 0 units 04/16/18 07:30 04/17/18 16:55 Humalog Low SC 3 units ACHS PAM Administration Protocol Levothyroxine Sodium 25 mcg 04/17/18 06:00 04/17/18 06:25 Synthroid PO 25 mcg 0600 PAM Administration Metoprolol Tartrate 25 mg 04/16/18 10:00 04/17/18 17:23 Lopressor PO 25 mg BID PAM Administration Ticagrelor 90 mg 04/16/18 10:00 04/17/18 17:24 Brilinta PO 90 mg BID PAM Administration - Patient Studies Lab Studies: Microbiology Studies 04/16/18 02:35 MRSA Culture (Admit) - Final Naris MRSA NOT DETECTED Lab Studies 04/17/18 04/17/18 04/17/18 Range/Units 12:13 05:00 05:00 WBC 5.2 D (4.5-11.0) 10^3/uL RBC 6.23 H (3.5-6.1) 10^6/uL Hgb 15.4 (14.0-18.0) g/dL Hct 48.6 (42.0-52.0) % MCV 78.0 L (80.0-105.0) fl MCH 24.7 L (25.0-35.0) pg MCHC 31.7 (31.0-37.0) g/dl RDW 14.0 (11.5-14.5) % Plt Count 145 (120.0-450.0) 10^3/uL MPV 10.2 (7.0-11.0) fl Gran % 35.9 L (50.0-68.0) % Lymph % (Auto) 52.9 H (22.0-35.0) % [place] % (Auto) 7.5 H (1.0-6.0) % Eos % (Auto) 3.3 (1.5-5.0) % Baso % (Auto) 0.4 (0.0-3.0) % Gran # 1.88 (1.4-6.5) Lymph # (Auto) 2.8 (1.2-3.4) [place] # (Auto) 0.4 (0.1-0.6) Eos # (Auto) 0.2 (0.0-0.7) Baso # (Auto) 0.02 (0.0-2.0) K/mm3 Sodium 139 (132-148) mmol/L Potassium 4.0 (3.6-5.0) mmol/L Chloride 106 (98-107) mmol/L Carbon Dioxide 27 (21-33) mmol/L Anion Gap 10 (10-20) BUN 11 (7-21) mg/dL Creatinine 0.6 L (0.8-1.5) mg/dl Est GFR ( Amer) > 60 Est GFR (Non-Af Amer) > 60 POC Glucose (mg/dL) 247 H (65-110) mg/dL Random Glucose 253 H (70-110) mg/dL Hemoglobin A1c (4.2-6.5) % Calcium 8.9 (8.4-10.5) mg/dL Phosphorus 3.5 (2.5-4.5) mg/dL Magnesium 2.1 (1.7-2.2) mg/dL Total Bilirubin 0.3 (0.2-1.3) mg/dL AST 80 H D (17-59) U/L ALT 40 (7-56) U/L Alkaline Phosphatase 73 (38-126) U/L Lactate Dehydrogenase 1201 H (333-699) U/L Total Creatine Kinase 687 H (35-230) U/L CK-MB (CK-2) 7.8 H (0.0-3.6) ng/mL CK-MB (CK-2) % 1.1 L (2.5-3.0) % Troponin I 21.70 H* D ng/mL Total Protein 7.2 (5.8-8.3) g/dL Albumin 3.8 (3.0-4.8) g/dL Globulin 3.4 gm/dL Albumin/Globulin Ratio 1.1 (1.1-1.8) 04/16/18 04/16/18 04/16/18 Range/Units 21:46 16:08 11:36 WBC (4.5-11.0) 10^3/uL RBC (3.5-6.1) 10^6/uL Hgb (14.0-18.0) g/dL Hct (42.0-52.0) % MCV (80.0-105.0) fl MCH (25.0-35.0) pg MCHC (31.0-37.0) g/dl RDW (11.5-14.5) % Plt Count (120.0-450.0) 10^3/uL MPV (7.0-11.0) fl Gran % (50.0-68.0) % Lymph % (Auto) (22.0-35.0) % [place] % (Auto) (1.0-6.0) % Eos % (Auto) (1.5-5.0) % Baso % (Auto) (0.0-3.0) % Gran # (1.4-6.5) Lymph # (Auto) (1.2-3.4) [place] # (Auto) (0.1-0.6) Eos # (Auto) (0.0-0.7) Baso # (Auto) (0.0-2.0) K/mm3 Sodium (132-148) mmol/L Potassium (3.6-5.0) mmol/L Chloride (98-107) mmol/L Carbon Dioxide (21-33) mmol/L Anion Gap (10-20) BUN (7-21) mg/dL Creatinine (0.8-1.5) mg/dl Est GFR ( Amer) Est GFR (Non-Af Amer) POC Glucose (mg/dL) 204 H 241 H 237 H (65-110) mg/dL Random Glucose (70-110) mg/dL Hemoglobin A1c (4.2-6.5) % Calcium (8.4-10.5) mg/dL Phosphorus (2.5-4.5) mg/dL Magnesium (1.7-2.2) mg/dL Total Bilirubin (0.2-1.3) mg/dL AST (17-59) U/L ALT (7-56) U/L Alkaline Phosphatase (38-126) U/L Lactate Dehydrogenase (333-699) U/L Total Creatine Kinase (35-230) U/L CK-MB (CK-2) (0.0-3.6) ng/mL CK-MB (CK-2) % (2.5-3.0) % Troponin I ng/mL Total Protein (5.8-8.3) g/dL Albumin (3.0-4.8) g/dL Globulin gm/dL Albumin/Globulin Ratio (1.1-1.8) 04/16/18 Range/Units 03:15 WBC (4.5-11.0) 10^3/uL RBC (3.5-6.1) 10^6/uL Hgb (14.0-18.0) g/dL Hct (42.0-52.0) % MCV (80.0-105.0) fl MCH (25.0-35.0) pg MCHC (31.0-37.0) g/dl RDW (11.5-14.5) % Plt Count (120.0-450.0) 10^3/uL MPV (7.0-11.0) fl Gran % (50.0-68.0) % Lymph % (Auto) (22.0-35.0) % [place] % (Auto) (1.0-6.0) % Eos % (Auto) (1.5-5.0) % Baso % (Auto) (0.0-3.0) % Gran # (1.4-6.5) Lymph # (Auto) (1.2-3.4) [place] # (Auto) (0.1-0.6) Eos # (Auto) (0.0-0.7) Baso # (Auto) (0.0-2.0) K/mm3 Sodium (132-148) mmol/L Potassium (3.6-5.0) mmol/L Chloride (98-107) mmol/L Carbon Dioxide (21-33) mmol/L Anion Gap (10-20) BUN (7-21) mg/dL Creatinine (0.8-1.5) mg/dl Est GFR ( Amer) Est GFR (Non-Af Amer) POC Glucose (mg/dL) (65-110) mg/dL Random Glucose (70-110) mg/dL Hemoglobin A1c 11.6 H (4.2-6.5) % Calcium (8.4-10.5) mg/dL Phosphorus (2.5-4.5) mg/dL Magnesium (1.7-2.2) mg/dL Total Bilirubin (0.2-1.3) mg/dL AST (17-59) U/L ALT (7-56) U/L Alkaline Phosphatase (38-126) U/L Lactate Dehydrogenase (333-699) U/L Total Creatine Kinase (35-230) U/L CK-MB (CK-2) (0.0-3.6) ng/mL CK-MB (CK-2) % (2.5-3.0) % Troponin I ng/mL Total Protein (5.8-8.3) g/dL Albumin (3.0-4.8) g/dL Globulin gm/dL Albumin/Globulin Ratio (1.1-1.8) Laboratory Results - last 24 hr 04/16/18 04/16/18 04/16/18 03:15 11:36 16:08 WBC RBC Hgb Hct MCV MCH MCHC RDW Plt Count MPV Gran % Lymph % (Auto) [place] % (Auto) Eos % (Auto) Baso % (Auto) Gran # Lymph # (Auto) [place] # (Auto) Eos # (Auto) Baso # (Auto) Sodium Potassium Chloride Carbon Dioxide Anion Gap BUN Creatinine Est GFR ( Amer) Est GFR (Non-Af Amer) POC Glucose (mg/dL) 237 H 241 H Random Glucose Hemoglobin A1c 11.6 H Calcium Phosphorus Magnesium Total Bilirubin AST ALT Alkaline Phosphatase Lactate Dehydrogenase Total Creatine Kinase CK-MB (CK-2) CK-MB (CK-2) % Troponin I Total Protein Albumin Globulin Albumin/Globulin Ratio 04/16/18 04/17/18 04/17/18 21:46 05:00 05:00 WBC 5.2 D RBC 6.23 H Hgb 15.4 Hct 48.6 MCV 78.0 L MCH 24.7 L MCHC 31.7 RDW 14.0 Plt Count 145 MPV 10.2 Gran % 35.9 L Lymph % (Auto) 52.9 H [place] % (Auto) 7.5 H Eos % (Auto) 3.3 Baso % (Auto) 0.4 Gran # 1.88 Lymph # (Auto) 2.8 [place] # (Auto) 0.4 Eos # (Auto) 0.2 Baso # (Auto) 0.02 Sodium 139 Potassium 4.0 Chloride 106 Carbon Dioxide 27 Anion Gap 10 BUN 11 Creatinine 0.6 L Est GFR ( Amer) > 60 Est GFR (Non-Af Amer) > 60 POC Glucose (mg/dL) 204 H Random Glucose 253 H Hemoglobin A1c Calcium 8.9 Phosphorus 3.5 Magnesium 2.1 Total Bilirubin 0.3 AST 80 H D ALT 40 Alkaline Phosphatase 73 Lactate Dehydrogenase 1201 H Total Creatine Kinase 687 H CK-MB (CK-2) 7.8 H CK-MB (CK-2) % 1.1 L Troponin I 21.70 H* D Total Protein 7.2 Albumin 3.8 Globulin 3.4 Albumin/Globulin Ratio 1.1 04/17/18 12:13 WBC RBC Hgb Hct MCV MCH MCHC RDW Plt Count MPV Gran % Lymph % (Auto) [place] % (Auto) Eos % (Auto) Baso % (Auto) Gran # Lymph # (Auto) [place] # (Auto) Eos # (Auto) Baso # (Auto) Sodium Potassium Chloride Carbon Dioxide Anion Gap BUN Creatinine Est GFR ( Amer) Est GFR (Non-Af Amer) POC Glucose (mg/dL) 247 H Random Glucose Hemoglobin A1c Calcium Phosphorus Magnesium Total Bilirubin AST ALT Alkaline Phosphatase Lactate Dehydrogenase Total Creatine Kinase CK-MB (CK-2) CK-MB (CK-2) % Troponin I Total Protein Albumin Globulin Albumin/Globulin Ratio EKG/Cardiology Studies: Cardiology / EKG Studies 04/17/18 EKG [ELECTROCARDIOGRAM] Routine Comment: Reason For Exam: f/u 04/17/18 02:15 ELECTROCARDIOGRAM DAILY Comment: Reason For Exam: chest pain Critical Care Progress Note - Nutrition Nutrition: Nutrition Category Date Time Status Heart Healthy Diet [DIET] Diets 04/17/18 Breakfast Active Addendum Addendum: 04/17/18 17:29 ICU Attending Addendum Patient seen and examined. Case reviewed on round with housestaff. Agree with resident note above with the following additions/exceptions: 42M with DM2 admitted with STEMI s/p stent to RCA and Lcx, balloon of OM1, EKG shows good resolution of infarct post mi cont dual antiplat as per cards statin BB repeat echo diab control with insulin scale ok to transfer out of in ICU as per cards Rest of care as above Anne Kuhn MD Pulmonary Critical Care and Sleep Medicine
--- NOTE | 2018-04-17 10:23 | CP.PCM.PN ---
<Adarsh Fraire - Last Filed: 04/17/18 10:17> Subjective - Date & Time of Evaluation Date of Evaluation: 04/17/18 Time of Evaluation: 10:17 - Subjective Subjective: PGY-2 medicine progress note for Dr Espinoza No acute events noted overnight. Patient has been doing well since stent placement. He's ambulating without issues and tolerating diet. No GI issues. No chest pain or shortness of breath. Tolerating diet. No bleeding. Objective - Vital Signs/Intake and Output Vital Signs (last 24 hours): Temp Pulse Resp BP Pulse Ox 98.9 F 94 H 12 103/72 96 04/16/18 00:31 04/17/18 09:06 04/17/18 06:50 04/17/18 09:06 04/17/18 07:10 Intake and Output: 04/17/18 04/17/18 06:59 18:59 Intake Total 1280 Output Total 2300 Balance -1020 - Medications Medications: Current Medications Aspirin (Ecotrin) 81 mg PO DAILY [facility] Last Admin: 04/17/18 09:06 Dose: 81 mg Atorvastatin Calcium (Lipitor) 80 mg PO DIN [facility] Glyburide (Micronase) 5 mg PO 0800,1700 [facility] Last Admin: 04/17/18 09:03 Dose: Not Given Insulin Human Lispro (Humalog Low) 0 units SC [facility]; Protocol Last Admin: 04/17/18 08:00 Dose: Not Given Levothyroxine Sodium (Synthroid) 25 mcg PO 0600 [facility] Last Admin: 04/17/18 06:25 Dose: 25 mcg Metoprolol Tartrate (Lopressor) 25 mg PO BID [facility] Last Admin: 04/17/18 09:06 Dose: 25 mg Ticagrelor (Brilinta) 90 mg PO BID [facility] Last Admin: 04/17/18 09:07 Dose: 90 mg - Labs Labs: 04/17/18 05:00 04/17/18 05:00 PT 11.9 SECONDS (9.4-12.5) 04/16/18 00:35 INR 1.04 04/16/18 00:35 APTT 53.0 Seconds (25.1-36.5) H 04/16/18 00:35 - Additional Findings Additional findings: - Constitutional Appears: Non-toxic, No Acute Distress - Head Exam Head Exam: ATRAUMATIC, NORMAL INSPECTION, NORMOCEPHALIC - Eye Exam Eye Exam: EOMI, Normal appearance, PERRL - Respiratory Exam Respiratory Exam: Clear to Auscultation Bilateral, NORMAL BREATHING PATTERN. absent: Accessory Muscle Use, Decreased Breath Sounds, Rales, Rhonchi, Wheezes, Respiratory Distress, Stridor Additional comments: pts exam was limited due to pt being post cath and unable to properly assess posterior lung joyce - Cardiovascular Exam Cardiovascular Exam: RRR, +S1, +S2. absent: Gallop, Rubs, Systolic Murmur - GI/Abdominal Exam GI & Abdominal Exam: Normal Bowel Sounds, Soft. absent: Distended, Firm, Guarding, Tenderness - Extremities Exam Extremities exam: Positive for: normal capillary refill, normal inspection, pedal pulses present. Negative for: calf tenderness, pedal edema, tenderness Additional comments: Pts radial area was assessed and no hematoma was noted on exam. pt was able to move fingers and had no numbness tingling in any extremity. - Neurological Exam Neurological exam: Alert, Oriented x3 - Psychiatric Exam Psychiatric exam: Normal Affect, Normal Mood - Skin Skin Exam: Dry, Normal Color, Warm Assessment and Plan - Assessment and Plan (Free Text) Plan: Pt is a 42 yo M with PMHx of IDDM [place] ED [place] a [place] ER for possible KS. 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 2 Bare-metal stents placed: 1. Inferior wall KS s/p stent placement: - Inferior wall KS s/p 2 TAMIA and 1 balloon angioplasty - Stents placed in Left circumflex, RCA placed by Dr. Gonzales - Continue with ASA 81 daily, Lipitor 80 mg, Lopressor 25mg BID, Brilinta 90 BID, Ramipril 1.25 qd - Echo post-stent placement normal - LDL 140, cholesterol 204, TG 287 - Lipitor 80 mg - HHD w/ mod carb consistency - Smoking cessation, diet modification - Frame Cleaner: Dr Gonzales 2. DM2: - Patient states he has not taken his diabetic medications for over 2 years - ISS - Low - HgbA1c 11.6 - Glyburide 10 mg BID - Diabetic Education 3. Hypothyroidism - TSH 9.07 - Free T4 normal - Start Synthroid 25 mcg Seen and discussed with Dr Espinoza <Silke Espinoza - Last Filed: 04/17/18 14:33> Objective - Vital Signs/Intake and Output Vital Signs (last 24 hours): Temp Pulse Resp BP Pulse Ox 98.9 F 94 H 12 103/72 96 04/16/18 00:31 04/17/18 09:06 04/17/18 06:50 04/17/18 09:06 04/17/18 07:10 Intake and Output: 04/17/18 04/17/18 06:59 18:59 Intake Total 1280 Output Total 2300 Balance -1020 - Medications Medications: Current Medications Aspirin (Ecotrin) 81 mg PO DAILY [facility] Last Admin: 04/17/18 09:06 Dose: 81 mg Atorvastatin Calcium (Lipitor) 80 mg PO DIN [facility] Glyburide (Micronase) 10 mg PO 0800,1700 [facility] Insulin Human Lispro (Humalog Low) 0 units SC [facility]; Protocol Last Admin: 04/17/18 12:33 Dose: 2 units Levothyroxine Sodium (Synthroid) 25 mcg PO 0600 [facility] Last Admin: 04/17/18 06:25 Dose: 25 mcg Metoprolol Tartrate (Lopressor) 25 mg PO BID [facility] Last Admin: 04/17/18 09:06 Dose: 25 mg Ticagrelor (Brilinta) 90 mg PO BID [facility] Last Admin: 04/17/18 09:07 Dose: 90 mg - Labs Labs: 04/17/18 05:00 04/17/18 05:00 PT 11.9 SECONDS (9.4-12.5) 04/16/18 00:35 INR 1.04 04/16/18 00:35 APTT 53.0 Seconds (25.1-36.5) H 04/16/18 00:35 Attending/Attestation - Attestation I have personally seen and examined this patient.: Yes I have fully participated in the care of the patient.: Yes I have reviewed all pertinent clinical information, including history, physical exam and plan: Yes Notes (Text): 04/17/18 14:27 attending note; Patient seen And examined with resident in ICU. patient is alert and awake. Denies any chest pain, shortness of breath. denies Any abdominal pain, nausea, vomiting. tolerating diet well. Patient is a 42-year-old male with the PMHx of active smoking, noncompliance with follow-up and IDDM presents to the ED from a satellite ER for possible KS. status post " code heart. Inferior wall KS s/p 2 TAMIA and 1 balloon angioplasty Stents placed in Left circumflex, RCA placed by Dr. Gonzales. Continue aspirin, brilinta, metoprolol. adjust metoprolol dosage for blood pressure and heart rate controlled. History of active smoking; complete smoking cessation is strongly advised. diabetes; patient was on insulin for a long period of time.stopped taking insulin 2 years ago. Diabetic education given. We will get dietitian evaluation and diabetic nurse evaluation. Started back on insulin. Patient currently has no insurance. We will get medications by the bedside tomorrow. Possible discharge tomorrow. We will give [facility] [place] appointment for follow-up. The diagnosis,Treatment option and follow-up discussed with patient in detail. Dietary compliance medication compliance Insisted in detail.
--- NOTE | 2018-04-17 12:02 | PN ---
DATE: 04/17/2018 REASON FOR CONSULTATION AND FOLLOWUP: Acute inferolateral ME, status post Acute STEMI, status post multivessel PTCA. SUBJECTIVE: The patient denies any chest pain, shortness of breath, or any palpitation. OBJECTIVE: Examination as follows; GENERAL: Not in apparent distress. VITAL SIGNS: Temperature afebrile, heart rate 94, and blood pressure 103/72. HEENT: PERRLA. Extraocular muscles intact. NECK: Supple. No carotid bruit or thyromegaly. CHEST: Clear to auscultation. HEART: S1 and S2 regular. ABDOMEN: Soft. EXTREMITIES: Clubbing and cyanosis negative. LABORATORY DATA: Blood workup as follows; WBC 5.8, hemoglobin 15.4, hematocrit 48.6, and platelet count 145. Chemistry shows sodium 137, potassium 4, chloride 106, carbon dioxide 27, anion gap of 10, BUN 11, and creatinine 0.6. Troponin trending down to 21.7, maximum being 48.9. EKG shows normal sinus, complete resolution of ST elevation. IMPRESSION: A 42-year-old male with a past medical history significant for active tobacco abuse, diabetes, and noncompliance with the medication admitted with inferolateral myocardial infarction status post primary angioplasty with multivessel percutaneous transluminal coronary angioplasty including right coronary artery OM1 branch, drug-eluting stent, and OM2 branch plain balloon angioplasty. History of diabetes and obesity. RECOMMENDATIONS: Complete cessation of smoking, compliance with the medications. Continue aspirin, Brilinta 90 mg twice. Continue atorvastatin, was started but it fell off. Continue metoprolol. Transfer to the telemetry. The patient had echocardiography done yesterday that revealed ejection fraction 50% to 55%, trace mitral regurgitation, trace tricuspid regurgitation, mild inferolateral hypokinesis, status post multivessel PTCA. Repeat the lab in the morning, mag/phos and troponin level in the morning. I will follow with you. Thank you Dr. Espinoza for providing us the opportunity in taking care of the patient, Fercho Oneal. Stacie Gonzales MD [facility]
[2018-04-17 18:52] VITALS: RESP 24; O2SAT 97
--- NOTE | 2018-04-17 20:29 | CARD ---
APPROVED REPORT Date of service: 04/17/2018 EKG Measurement Heart [id number] <Conclusion> Normal sinus rhythm Inferior infarct, age undetermined Nonspecific T changes Abnormal ECG
[2018-04-18] MEDS: Levothyroxine 25 MCG TAB PO SCH (05:07)
[2018-04-18 06:21] LABS: BASO # 0.05 K/mm3 (0.0-2.0); BASO % 0.9 % (0.0-3.0); EOS # 0.2 (0.0-0.7); EOS % 4.1 % (1.5-5.0); GRAN # 1.84 (1.4-6.5); GRAN % 34.6 % (50.0-68.0); HEMOGLOBIN 16.9 g/dL (14.0-18.0); LYMPH # 2.9 (1.2-3.4); LYMPH % 54.6 % (22.0-35.0); MEAN CELL VOLUME 78.6 fl (80.0-105.0); MEAN CORPUSCULAR HGB CONC 31.8 g/dl (31.0-37.0); MONO # 0.3 (0.1-0.6); MONO % 5.8 % (1.0-6.0); RBC 6.77 10^6/uL (3.5-6.1); WHITE BLOOD COUNT 5.3 10^3/uL (4.5-11.0)
[2018-04-18 07:54] LABS: ALB/GLOB RATIO 1.2 (1.1-1.8); ALBUMIN 4.1 g/dL (3.0-4.8); ALT/SGPT 33 U/L (7-56); AST/SGOT 41 U/L (17-59); BLOOD UREA NITROGEN 17 mg/dL (7-21); CALCIUM 9.2 mg/dL (8.4-10.5); GFR NON-AFRICAN AMERICAN > 60
[2018-04-18 08:12] LABS: CK-MB 2.6 ng/mL (0.0-3.6); TROPONIN I 8.55 ng/mL
[2018-04-18] MEDS: Insulin Lispro (humaLOG) LOW Coverage SC SCH (08:16)
--- NOTE | 2018-04-18 09:19 | CPOSTOP ---
DATE: 04/16/2018 PHYSICIAN: Dr. Azra Gonzales. MACHINE STRAW HAT PRESSER: Giacomo Valdivia, manager cardiovascular. TYPE OF ANESTHESIA: Moderate conscious sedation, total 3 mg of Versed and 100 of fentanyl given periodically. Started 1 mg of Versed and 50 of fentanyl. PRE-PROCEDURE DIAGNOSIS: ST-elevation myocardial infarction, inferior wall myocardial infarction with lateral extension. PROCEDURES PERFORMED: 1. Left heart catheterization. 2. Stenting of mid circumflex OM1. 3. Plain balloon angioplasty of OM3. 4. Percutaneous transluminal coronary angioplasty with stenting of mid right coronary artery. FINDINGS: 99% mid circumflex occluded going to OM1 and OM2 bifurcation disease, 90% mid RCA stenosis. FINAL DIAGNOSIS: Multivessel coronary artery disease, status post acute inferior wall myocardial infarction. POST PROCEDURE CONDITION: The patient condition is stable. VASCULAR ACCESS SITE: Left radial. CLOSURE DEVICE APPLIED: TR band. TOTAL RADIATION DOSE: 98403.7 milligray unit. TOTAL FLUORO TIME: 11.2 minutes. Stacie Gonzales MD
--- NOTE | 2018-04-18 09:20 | CON ---
DATE: 04/16/2018 REASON FOR CONSULTATION AND FOLLOWUP: ST-segment myocardial infarction. BRIEF CLINICAL HISTORY: This is a 42-year-old male, active tobacco abuse, pack a day smoking, uses off and on ibuprofen. He started developing chest pain around 9 p.m., came to the [facility] clinic with Chest pain and found to have ST-elevation inferiorly II, III, aVF with reciprocal ST depression in V1, V2, and V3. Then he was transferred to [place] [facility] where a code STEMI was activated. I saw the patient in the ER, the initial chest pain was started with 7/10, after giving aspirin decrease to 4/10. He is still having some chest pain. Denies any prior episodes of chest pain. PAST MEDICAL HISTORY: Nothing significant. CURRENT MEDICATIONS: Ibuprofen p.r.n. PAST SURGICAL HISTORY: Significant for drainage of abscess of pimples many years ago. FAMILY HISTORY: Not significant. SOCIAL HISTORY: Active tobacco abuse a pack a day at least, may be sometime more. Denies any history of alcohol abuse. Denies any history of substance abuse. PHYSICAL EXAMINATION: VITAL SIGNS: Height of the patient is 5 feet 7 inches. Weight of the patient is 220 pounds. Body mass index 35 kg/m2. Temperature afebrile, heart rate 102, and blood pressure 130/89. HEENT: PERRLA. Extraocular muscles intact. NECK: Supple. No carotid bruits or thyromegaly. CHEST: Clear to auscultation. HEART: S1 and S2 regular. ABDOMEN: Soft. EXTREMITIES: Clubbing and cyanosis negative. LABORATORY DATA: Blood workup pending. EKG shows normal sinus acute ST-elevation in II, III, and aVF with reciprocal ST depression. IMPRESSION: Acute inferior wall myocardial infarction, recent. RECOMMENDATIONS: Risks, benefits, and alternatives were discussed with the patient and the patient agreed to proceed with cardiac catheterization. Aspirin 325, give 180 mg of Brilinta and 3000 heparin bolus followed by Integrilin drip bolus 180 mcg/kg followed by infusion 2 mg per minute. We will take to the lab technician. Risks, benefits, and alternatives were discussed. The patient agreed and will proceed for cardiac catheterization. Consent obtained. Further recommendations will be done after the cardiac catheterization. We will follow with you. Thank you Dr. Espinoza for providing us the opportunity in taking care of the patient, Fercho Oneal. Stacie Gonzales MD MTDDaniella
[2018-04-18 09:43] VITALS: BP 105/58
[2018-04-18] MEDS ORDERED: Pneumococcal 23-Valent Vaccine IM ONE (10:56)
[2018-04-18 11:01] VITALS: PULSE 100
--- NOTE | 2018-04-18 13:11 | CP.PCM.DIS ---
<DebbieDavid - Last Filed: 04/18/18 13:07> Provider - Provider Date of Admission: 04/16/18 00:50 Attending physician: Chantell Leyva DO Consults: 04/16/18 00:59 Consult [Physician Consult] Stat Comment: STEMI Consulting Provider: Stacie Gonzales Consulting Physician: Stacie Gonzales Reason for Consult: STEMI 04/17/18 10:37 Diabetic Education Referral Routine Comment: Physician Instructions: will now resume insulin after many years Reason For Exam: has not taken DM meds in over 2 years Time Spent in preparation of Discharge (in minutes): 45 Diagnosis - Discharge Diagnosis (1) Acute [place], inferior wall, initial episode of care Status: Acute (2) Type 2 diabetes mellitus Status: Chronic (3) Hypothyroidism Status: Acute (4) STEMI (ST elevation myocardial infarction) Status: Acute Hospital Course - Lab Results Lab Results: Micro Results 04/16/18 02:35 Naris MRSA Culture (Admit) - Final MRSA NOT DETECTED Most Recent Lab Values WBC 5.3 10^3/uL (4.5-11.0) 04/18/18 05:30 RBC 6.77 10^6/uL (3.5-6.1) H 04/18/18 05:30 Hgb 16.9 g/dL (14.0-18.0) 04/18/18 05:30 Hct 53.2 % (42.0-52.0) H 04/18/18 05:30 MCV 78.6 fl (80.0-105.0) L 04/18/18 05:30 MCH 25.0 pg (25.0-35.0) 04/18/18 05:30 MCHC 31.8 g/dl (31.0-37.0) 04/18/18 05:30 RDW 14.0 % (11.5-14.5) 04/18/18 05:30 Plt Count 153 10^3/uL (120.0-450.0) 04/18/18 05:30 MPV 10.0 fl (7.0-11.0) 04/18/18 05:30 Gran % 34.6 % (50.0-68.0) L 04/18/18 05:30 Lymph % (Auto) 54.6 % (22.0-35.0) H 04/18/18 05:30 [place] % (Auto) 5.8 % (1.0-6.0) 04/18/18 05:30 Eos % (Auto) 4.1 % (1.5-5.0) 04/18/18 05:30 Baso % (Auto) 0.9 % (0.0-3.0) 04/18/18 05:30 Gran # 1.84 (1.4-6.5) 04/18/18 05:30 Lymph # (Auto) 2.9 (1.2-3.4) 04/18/18 05:30 [place] # (Auto) 0.3 (0.1-0.6) 04/18/18 05:30 Eos # (Auto) 0.2 (0.0-0.7) 04/18/18 05:30 Baso # (Auto) 0.05 K/mm3 (0.0-2.0) 04/18/18 05:30 PT 11.9 SECONDS (9.4-12.5) 04/16/18 00:35 INR 1.04 04/16/18 00:35 APTT 53.0 Seconds (25.1-36.5) H 04/16/18 00:35 Sodium 138 mmol/L (132-148) 04/18/18 07:25 Potassium 4.3 mmol/L (3.6-5.0) 04/18/18 07:25 Chloride 105 mmol/L (98-107) 04/18/18 07:25 Carbon Dioxide 25 mmol/L (21-33) 04/18/18 07:25 Anion Gap 11 (10-20) 04/18/18 07:25 BUN 17 mg/dL (7-21) 04/18/18 07:25 Creatinine 0.6 mg/dl (0.8-1.5) L 04/18/18 07:25 Est GFR ( Amer) > 60 04/18/18 07:25 Est GFR (Non-Af Amer) > 60 04/18/18 07:25 POC Glucose (mg/dL) 231 mg/dL (65-110) H 04/18/18 07:57 Random Glucose 280 mg/dL (70-110) H 04/18/18 07:25 Hemoglobin A1c 11.6 % (4.2-6.5) H 04/16/18 03:15 Calcium 9.2 mg/dL (8.4-10.5) 04/18/18 07:25 Phosphorus 3.8 mg/dL (2.5-4.5) 04/18/18 07:25 Magnesium 2.0 mg/dL (1.7-2.2) 04/18/18 07:25 Total Bilirubin 0.5 mg/dL (0.2-1.3) 04/18/18 07:25 AST 41 U/L (17-59) 04/18/18 07:25 ALT 33 U/L (7-56) 04/18/18 07:25 Alkaline Phosphatase 75 U/L (38-126) 04/18/18 07:25 Lactate Dehydrogenase 995 U/L (333-699) H 04/18/18 07:25 Total Creatine Kinase 283 U/L (35-230) H 04/18/18 07:25 CK-MB (CK-2) 2.6 ng/mL (0.0-3.6) 04/18/18 07:25 CK-MB (CK-2) % 1.1 % (2.5-3.0) L 04/17/18 05:00 Troponin I 8.55 ng/mL H* D 04/18/18 07:25 Total Protein 7.6 g/dL (5.8-8.3) 04/18/18 07:25 Albumin 4.1 g/dL (3.0-4.8) 04/18/18 07:25 Globulin 3.5 gm/dL 04/18/18 07:25 Albumin/Globulin Ratio 1.2 (1.1-1.8) 04/18/18 07:25 Triglycerides 287 mg/dL (35-160) H 04/16/18 03:15 Cholesterol 204 mg/dL (130-200) H 04/16/18 03:15 LDL Cholesterol Direct 140 mg/dL (0-129) H 04/16/18 03:15 HDL Cholesterol 26 mg/dL (29-60) L 04/16/18 03:15 Free T4 1.23 ng/dL (0.78-2.19) 04/16/18 11:00 Free T3 pg/mL 3.38 pg/mL (2.77-5.27) 04/16/18 11:00 TSH 3rd Generation 9.07 mIU/mL (0.46-4.68) H 04/16/18 03:15 Blood Type A POSITIVE 04/16/18 00:30 Blood Type Confirm A POSITIVE 04/16/18 03:15 Antibody Screen Negative 04/16/18 00:30 BBK History Checked No verified bt 04/16/18 00:30 - Hospital Course Hospital Course: HPI at time of admission: "42 yo M with pmhx of IDDM [place] [facility] ED from a [facility] ER for possible [place]. Pt states that he went to satellite ER because he began having chest pain at 9pm. He rated the pain at 7/10 and states that it is a burning type pain which started on his L side and then radiated to the R shoulder and arm. He denies any worsening of the pain with exertion and states that there was no alleviation of the pain overtime. Pt reports not taking anything for the chest pain and states that since it didnt get better over time he wanted to go take a shower, but while walking to the bathroom he became SOB. He then called a cab to take him to the satellite ER and then was BIBA to our ER where a code heart was called." Hospital Course: Pertinent imaging: CXR 04/16: no active disease EKG 04/16: HR 100 bpm, low voltage QRS, ST elevations in leads II, III and aVF Repeat EKG 04/16: NSR at 92 bpm EKG 04/17: NSR at 92 bpm, inferior infarct age undetermined, non-specific EKG changes Echo 04/16: LV systolic function low normal 50-55%, trace mitral/tricuspid regurgitation, mild hypokinesis in mid-inferolateral wall, s/p Code STEMI, s/p Multivessel PTCA Cardiac cath 04/16: Two-vessel critical disease distal Cx 99% involving Bifurcation of Ostial OM1 and OM2 99%, and Mid RCA 90%. Mildly decreased LV Fx. EF 45-50%, EDP-14 mm Hg. Successful PTCA with TAMIA of Mid Cx/OM1, POBA of OM2, an d PTCA with TAMIA of Mid RCA. Pt was admitted for management of inferior wall STEMI. Code Heart was called. Pt was emergently transferred to the [facility] where Dr. Gonzales (Cardiology) performed cardiac cath and PTCA and POBA of noted above vessels. Pt tolerated procedure well, was transferred to ICU for further monitoring. Chest pain resolved. Pt was started on ASA, Lipitor, Lopressor, Briilinta, and Ramipril post-cath procedure. Pt reported at time that he was not taking DM medications for over 2 years. Hgb A1c during admission was 11.6. Pt was started on Glyburide and Metformin inpatient for control of blood sugars. Pt was offered trial of insulin therapy while inpatient, but pt declined stating he would rather take the oral medications to manage his sugars at this time and wanted to go home. Pt also had elevated TSH of 9.07 during admission. Was started on synthroid therapy and instructed to have repeat TSH with his primary doctor in 6 weeks to monitor treatment response. Pt was discharged to home in stable condition Pt was instructed to f/u with Dr. Gonzales (Cardiology) within 7 days of hospital discharge. Pt was given appt to establish care with [facility] at [facility] on 04/25/17 at 4:30 pm for primary care follow-up after discharge. Pt was given scripts for ASA, Briilinta, Lipitor, Lopressor, Metformin, Glyburide, and Synthroid prior to discharge. Was instructed to keep track of blood sugars in diary and bring to first clinic appointment. Was given counseling about smoking cessation, and how by smoking and not adhering to medication regimen he could have another heart attack if he does not comply with therapy. Instructed to return to the ED if his symptoms worsened. Discharge Exam - Head Exam Head Exam: ATRAUMATIC, NORMAL INSPECTION, NORMOCEPHALIC - Eye Exam Eye Exam: EOMI, Normal appearance, PERRL - ENT Exam ENT Exam: Mucous Membranes Moist - Respiratory Exam Respiratory Exam: Clear to PA & Lateral, NORMAL BREATHING PATTERN, UNREMARKABLE. absent: Rales, Rhonchi, Wheezes - Cardiovascular Exam Cardiovascular Exam: REGULAR RHYTHM, +S1, +S2. absent: Gallop, Rubs, Systolic Murmur - GI/Abdominal Exam GI & Abdominal Exam: Normal Bowel Sounds, Soft, Unremarkable. absent: Distended, Guarding, Tenderness - Extremities Exam Extremities exam: full ROM, normal capillary refill, normal inspection, pedal pulses present - Neurological Exam Neurological exam: Alert, CN II-XII Intact, Normal Gait, Oriented x3, Reflexes Normal - Psychiatric Exam Psychiatric exam: Normal Affect, Normal Mood - Skin Skin Exam: Dry, Intact, Normal Color, Warm Discharge Plan - Discharge Medications Prescriptions: RX: Aspirin [Ecotrin] 81 mg PO DAILY #30 tabec RX: Atorvastatin [Lipitor] 80 mg PO DIN #30 tab RX: glyBURIDE [Micronase] 10 mg PO 0800,1700 #60 tab RX: Levothyroxine [Synthroid] 25 mcg PO 0600 #30 tab RX: MetFORMIN [glucoPHAGE] 500 mg PO BID #60 tab RX: Metoprolol Tartrate [Lopressor] 25 mg PO BID #60 tab RX: Ticagrelor [Brilinta] 90 mg PO BID #60 tab - Follow Up Plan Condition: GUARDED Disposition: HOME/ ROUTINE Instructions: Heart Healthy Diet, Heart Attack Recovery, What Can Go Wrong After a Heart Attack?, Going Home on Blood Thinners , Myocardial Infarction (DC) Additional Instructions: Please follow-up with cardiology Dr Gonzales within 7 days so he may monitor your course. Please establish care with a Primary Medical Doctor. We have a [facility] clinic here at [facility]. We have made you an appointment for April 25 2018 at 4:30PM. You will be discharged on the following medications. These medications will treat your heart, your diabetes and your hypothyroidism. Please take them as instructed: 1. Aspirin 81mg take 1 tablet at 10AM 2. Ticagrelor (Brilinta) 90mg take 1 tablet at 10AM and 1 tablet at 8PM 3. Atorvastatin (lipitor) 80mg take 1 tablet at bedtime 4. Metoprolol Tartrate (lopressor) 25mg take 1 tablet at 10AM and 1 tablet at 8PM 5. Metformin 500mg BID take 1 tablet at 10AM and 1 tablet at 8PM 6. Glyburide (micronase) 10mg take 1 tablet at 10AM and 1 tablet at 8PM 7. Synthroid 25mg take 1 tablet upon waking Please keep track of your blood sugars and write them down in a diary and bring them to your appointment on April 25 2018. Your diabetes medication may need to be adjusted at your appointment at [facility]. Please stop smoking - if you continue smoking you are at high risk for another heart attack. Please take all your medications as directed - if you do not take your medications you are at high risk for another heart attack. Please eat a heart healthy well balanced diet low in fats and start exercising at least 150 minutes of cardio per week. If symptoms return, please go to your nearest emergency department. Referrals: [facility] [Provider Group] Stacie Gonzales MD [Staff Provider] - <Chantell Leyva - Last Filed: 04/19/18 11:35> Provider - Provider Date of Admission: 04/16/18 00:50 Attending physician: Chantell Leyva DO Consults: 04/16/18 00:59 Consult [Physician Consult] Stat Comment: STEMI Consulting Provider: Stacie Gonzales Consulting Physician: Stacie Gonzales Reason for Consult: STEMI 04/17/18 10:37 Diabetic Education Referral Routine Comment: Physician Instructions: will now resume insulin after many years Reason For Exam: has not taken DM meds in over 2 years Hospital Course - Lab Results Lab Results: Micro Results 04/16/18 02:35 Naris MRSA Culture (Admit) - Final MRSA NOT DETECTED Most Recent Lab Values WBC 5.3 10^3/uL (4.5-11.0) 04/18/18 05:30 RBC 6.77 10^6/uL (3.5-6.1) H 04/18/18 05:30 Hgb 16.9 g/dL (14.0-18.0) 04/18/18 05:30 Hct 53.2 % (42.0-52.0) H 04/18/18 05:30 MCV 78.6 fl (80.0-105.0) L 04/18/18 05:30 MCH 25.0 pg (25.0-35.0) 04/18/18 05:30 MCHC 31.8 g/dl (31.0-37.0) 04/18/18 05:30 RDW 14.0 % (11.5-14.5) 04/18/18 05:30 Plt Count 153 10^3/uL (120.0-450.0) 04/18/18 05:30 MPV 10.0 fl (7.0-11.0) 04/18/18 05:30 Gran % 34.6 % (50.0-68.0) L 04/18/18 05:30 Lymph % (Auto) 54.6 % (22.0-35.0) H 04/18/18 05:30 [place] % (Auto) 5.8 % (1.0-6.0) 04/18/18 05:30 Eos % (Auto) 4.1 % (1.5-5.0) 04/18/18 05:30 Baso % (Auto) 0.9 % (0.0-3.0) 04/18/18 05:30 Gran # 1.84 (1.4-6.5) 04/18/18 05:30 Lymph # (Auto) 2.9 (1.2-3.4) 04/18/18 05:30 [place] # (Auto) 0.3 (0.1-0.6) 04/18/18 05:30 Eos # (Auto) 0.2 (0.0-0.7) 04/18/18 05:30 Baso # (Auto) 0.05 K/mm3 (0.0-2.0) 04/18/18 05:30 PT 11.9 SECONDS (9.4-12.5) 04/16/18 00:35 INR 1.04 04/16/18 00:35 APTT 53.0 Seconds (25.1-36.5) H 04/16/18 00:35 Sodium 138 mmol/L (132-148) 04/18/18 07:25 Potassium 4.3 mmol/L (3.6-5.0) 04/18/18 07:25 Chloride 105 mmol/L (98-107) 04/18/18 07:25 Carbon Dioxide 25 mmol/L (21-33) 04/18/18 07:25 Anion Gap 11 (10-20) 04/18/18 07:25 BUN 17 mg/dL (7-21) 04/18/18 07:25 Creatinine 0.6 mg/dl (0.8-1.5) L 04/18/18 07:25 Est GFR ( Amer) > 60 04/18/18 07:25 Est GFR (Non-Af Amer) > 60 04/18/18 07:25 POC Glucose (mg/dL) 231 mg/dL (65-110) H 04/18/18 07:57 Random Glucose 280 mg/dL (70-110) H 04/18/18 07:25 Hemoglobin A1c 11.6 % (4.2-6.5) H 04/16/18 03:15 Calcium 9.2 mg/dL (8.4-10.5) 04/18/18 07:25 Phosphorus 3.8 mg/dL (2.5-4.5) 04/18/18 07:25 Magnesium 2.0 mg/dL (1.7-2.2) 04/18/18 07:25 Total Bilirubin 0.5 mg/dL (0.2-1.3) 04/18/18 07:25 AST 41 U/L (17-59) 04/18/18 07:25 ALT 33 U/L (7-56) 04/18/18 07:25 Alkaline Phosphatase 75 U/L (38-126) 04/18/18 07:25 Lactate Dehydrogenase 995 U/L (333-699) H 04/18/18 07:25 Total Creatine Kinase 283 U/L (35-230) H 04/18/18 07:25 CK-MB (CK-2) 2.6 ng/mL (0.0-3.6) 04/18/18 07:25 CK-MB (CK-2) % 1.1 % (2.5-3.0) L 04/17/18 05:00 Troponin I 8.55 ng/mL H* D 04/18/18 07:25 Total Protein 7.6 g/dL (5.8-8.3) 04/18/18 07:25 Albumin 4.1 g/dL (3.0-4.8) 04/18/18 07:25 Globulin 3.5 gm/dL 04/18/18 07:25 Albumin/Globulin Ratio 1.2 (1.1-1.8) 04/18/18 07:25 Triglycerides 287 mg/dL (35-160) H 04/16/18 03:15 Cholesterol 204 mg/dL (130-200) H 04/16/18 03:15 LDL Cholesterol Direct 140 mg/dL (0-129) H 04/16/18 03:15 HDL Cholesterol 26 mg/dL (29-60) L 04/16/18 03:15 Free T4 1.23 ng/dL (0.78-2.19) 04/16/18 11:00 Free T3 pg/mL 3.38 pg/mL (2.77-5.27) 04/16/18 11:00 TSH 3rd Generation 9.07 mIU/mL (0.46-4.68) H 04/16/18 03:15 Blood Type A POSITIVE 04/16/18 00:30 Blood Type Confirm A POSITIVE 04/16/18 03:15 Antibody Screen Negative 04/16/18 00:30 BBK History Checked No verified bt 04/16/18 00:30 Attending/Attestation - Attestation I have personally seen and examined this patient.: Yes I have fully participated in the care of the patient.: Yes I have reviewed all pertinent clinical information, including history, physical exam and plan: Yes Notes (Text): Please note this DC summary is for 04/18/18 Patient seen and examined by me with resident 9:30AM and prior to discharge on 04/18/18. Case including discharge plan discussed with resident. Agree with above with following additions/corrections. Patient is a 42-year-old male with past medical history significant for 2 diabetes and medication noncompliance that presented to the emergency room with possible acute [place]. Please see H&P for full details. Patient was admitted with inferior wall [place]. Code heart was called in the emergency room and patient was taken to cardiac catheterization with 3 bare metal stents placed (left circumflex, RCA, and OM1). Patient was being followed by [facility]. Patient was continued on ASA, Lipitor, metoprolol, and Brilinta. Patient's troponins were 0.15, 48.90, 21.70, and 8.55. Patient had no chest pain after cardiac catheterization. TSH was 9.07, Free T4 was 1.23. HgbA1C was 11.6. Patient noncompliant with diabetes medications. States "I know my body and I dont need the medications. I also can not afford the insulin." Patient was maintained on insulin sliding scale, glyburide, and metformin. Discussed starting insulin with patient, however, patient did not want to stay another night in the hospital and stated he would follow up with his primary care doctor, Dr. Still, to start insulin. Patient was advised and counseled at length on taking his diabetes medications daily and to follow up with his primary care doctor for medication changes and adjustement. Patient also counseled on diet and exercise. Importance of diabetes control and effect on the heart discussed at length with patient. Total cholesterol 204, LDL 140, HDL 26, and triglycerides 287. Patient stated all his symptoms were gone and he wanted to go home. Patient was cleared for discharge by cardiology and patient was discharged home. On day of discharge, patient stated he was feeling much better. Patient denied any chest pain. No shortness of breath or palpitations. No nausea, vomiting, or abdominal pain. No headache or dizziness. No change in vision or light headedness. No fevers or chills. No palpitations. No dysuria. No diarrhea or constipation. Medication compliance discussed at length with patient. Physical exam: General: Awake and alert, lying in bed in no acute distress. HEENT: Normocephalic, atraumatic, Extraocular muscles intact, pupils equal and reactive, no scleral icterus. Oropharynx is pink and moist. No pharyngeal erythema or exudate appreciated. Neck is supple. Cardiovascular: Regular rhythm. Normal S1 and S2. No murmus, rubs, or gallops appreciated. Pulmonary: Normal respiratory effort. No rhonchi, rales, or wheezing appreciated. Gastrointestinal: Soft, nondistended. Nontender. Positive bowel sounds all 4 quadrants. No guarding. Musculoskeletal: Moves all extremities. No calf tenderness. No edema appreciated. No CVA tenderness. Central nervous system: AAO x3, CN2-12 grossly intact. Dermatologic: Skin warm and dry. Please see chart for full details. Follow up instructions: Patient to follow-up with primary care doctor at [facility] on 04/25/17 at 4:30PM or patient to follow up with his primary care doctor , Dr. Still. Patient to take medications as prescribed. Patient to stop smoking. All instructions explained to the patient in detail. Patient both und erstands and agrees to all instructions. Written instructions also given. Time spent in discharging the patient including chart review, medication reconciliation, discussion with the patient, medical service representative, consultants, and nursing staff was approximately 40 minutes.
--- NOTE | 2018-04-18 17:09 | PN ---
DATE: 04/18/2018 REASON FOR CONSULTATION AND FOLLOWUP: Acute inferolateral AL, status post status post primary angioplasty multivessel. SUBJECTIVE: The patient denies any chest pain, shortness of breath, any palpitation. OBJECTIVE: Not in apparent distress. PHYSICAL EXAMINATION: VITAL SIGNS: Temperature afebrile, heart rate 93, blood pressure 105/58. HEENT: PERRLA intact. NECK: Supple. No carotid bruit or thyromegaly. CHEST: Clear to auscultation. HEART: S1 and S2 regular. ABDOMEN: Soft. EXTREMITIES: Clubbing, cyanosis negative. LABORATORY DATA: Blood workup as follows; WBC 5.3, hemoglobin 15.9, hematocrit 53.2, platelet count 153. Chemistry shows sodium 130, potassium 4.3, chloride 105, carbon dioxide 25, anion gap of 11, BUN 17, creatinine 0.6. Troponin trend down to 8.55. IMPRESSION: A 42-year-old male with past medical history significant for diabetes, morbid obesity, active tobacco abuser, admitted with acute inferolateral myocardial infarction status post multivessel percutaneous transluminal coronary angioplasty including midcircumflex obtuse marginal 2, angioplasty obtuse marginal 1 and mid right coronary artery. The patient had echocardiogram done yesterday that revealed ejection fraction of 50-55%, trace mitral regurgitation, trace tricuspid regurgitation 38. RECOMMENDATIONS: The patient is stable, asymptomatic, no chest pain. Continue aspirin, continue Brilinta, continue atorvastatin, continue metoprolol 25 p.o. b.i.d., continue levothyroxine, continue aggressive treatment for diabetes, ELIZABETH inhibitor and complete cessation of smoking. has made for the medication, okay to be discharged. The patient had a maximum CPK of 1359 with a maximum troponin of 48.9. Now, the troponin trended down to 8.57, CPK trended down to 283. Thank you Dr. Leyva for providing us the opportunity in taking care of the patient, Jm Brantley. Stacie Gonzales MD
== END 2018-04-18 12:42 | disposition home or self-care (01) | DRG 174 ==
LOC: ED 00:23 → ERH 00:50 → ICU 02:34
PROVIDERS: ADMIT Internal Medicine; ATTEND Hospitalist
PROC: 027135Z Dilation of Coronary Artery, Two Arteries with Two Drug-eluting Intraluminal Devices, Percutaneous Approach (ICD-10-PCS; principal; 2018-04-16)
PROC: 02703ZZ Dilation of Coronary Artery, One Artery, Percutaneous Approach (ICD-10-PCS; 2018-04-16)
PROC: 4A023N7 Measurement of Cardiac Sampling and Pressure, Left Heart, Percutaneous Approach (ICD-10-PCS; 2018-04-16)
PROC: B2111ZZ Fluoroscopy of Multiple Coronary Arteries using Low Osmolar Contrast (ICD-10-PCS; 2018-04-16)
PROC: B2151ZZ Fluoroscopy of Left Heart using Low Osmolar Contrast (ICD-10-PCS; 2018-04-16)
PROC: 3E033PZ Introduction of Platelet Inhibitor into Peripheral Vein, Percutaneous Approach (ICD-10-PCS; 2018-04-16)
DX: I21.19 ST elevation (STEMI) myocardial infarction involving other coronary artery of inferior wall (principal); E66.01 Morbid (severe) obesity due to excess calories; E11.9 Type 2 diabetes mellitus without complications; I25.5 Ischemic cardiomyopathy; E03.9 Hypothyroidism, unspecified; F17.210 Nicotine dependence, cigarettes, uncomplicated; Z68.34 Body mass index [BMI] 34.0-34.9, adult; Z79.4 Long term (current) use of insulin; Z91.19 Patient's noncompliance with other medical treatment and regimen; Z91.14 Patient's other noncompliance with medication regimen; Z82.49 Family history of ischemic heart disease and other diseases of the circulatory system; Z83.3 Family history of diabetes mellitus